=== PATIENT | female | born 1945 | race Caucasian/White ===

== ENCOUNTER 2016-11-15 12:10 | Inpatient (IN) ==
[2016-11-15] MEDS ORDERED: ACETAMINOPHEN 325 MG TABLET PO PRN (13:24)
[2016-11-15] MEDS ORDERED: ALBUTEROL 2.5 MG/3 ML NEB RESP TX PRN (13:24)
[2016-11-15] MEDS ORDERED: ONDANSETRON 4 MG/2 ML VIAL IV PRN (13:24)
[2016-11-15] MEDS ORDERED: DEXTROSE 50% 25 GM/50 ML VIAL IV PRN ×2 (13:24)
[2016-11-15] MEDS ORDERED: GLUCAGON 1 MG VIAL IM PRN ×2 (13:24)
--- NOTE | 2016-11-15 13:33 | Nephrology History & Physical ---
History of Present Illness Chief complaint: Shortness of breath CHF History of present illness: Ms. Cassidy is a 71 year old female with a history of chronic kidney disease due to hypertension is followed by me in my chronic kidney disease clinic. The patient's baseline serum creatinine is approximately 2.3. She follow-up in clinic again today with a one-week history of increased shortness of breath a 6 pound weight gain. Patient was been very poor follow-up neck walking in the clinic required wheelchair assistance. Her family expressed that she went to a local hospital for similar symptoms was observed for an additional 24 hours in the hospital however symptoms did not improve. While in clinic she had a chest x-ray a which showed evidence of pulmonary congestion. She and her family have stated they have tried Lasix at home and have not gotten much results. She has noticed further lower extremity swelling, and weakness. She is admitted for IV Lasix further workup for her congestive heart failure. Home Medications Medication Instructions Recorded Confirmed Type Carvedilol [Coreg] 25 mg PO BID 02/13/16 02/15/16 History Clopidogrel [Plavix] 75 mg PO DAILY 02/13/16 02/15/16 History Dicyclomine HCl 20 mg PO TID 02/13/16 02/15/16 History Ergocalciferol (Vitamin D2) 50,000 unit PO Q7D 02/13/16 02/15/16 History [Vitamin D2] Escitalopram [Lexapro] 10 mg PO QAM 02/13/16 02/15/16 History Ezetimibe [Zetia] 10 mg PO DAILY 02/13/16 02/15/16 History Furosemide Tab [Lasix Tab] 40 mg PO DAILY 02/13/16 02/15/16 History Isosorbide Mononitrate [Isosorbide 30 mg PO DAILY 02/13/16 02/15/16 History Mononitrate ER] Linaclotide [Linzess] 145 mcg PO AC BREAKFAST 02/13/16 02/15/16 History Nitroglycerin Sl Tab [Nitrostat] 0.4 mg SL Q5M PRN 02/13/16 02/15/16 History Olopatadine HCl [Pataday 0.2% Oph 1 drop BOTH EYES DAILY 02/13/16 02/15/16 History Soln] Pravastatin Sodium 40 mg PO BEDTIME 02/13/16 02/15/16 History Topiramate 50 mg PO BID 02/13/16 02/15/16 History amLODIPine [Norvasc] 10 mg PO DAILY 02/13/16 02/15/16 History hydrALAZINE TAB [Apresoline Tab] 50 mg PO TID 02/13/16 02/15/16 History Insulin NPH/Regular 70/30 [HumuLIN 12 unit SUBCUT BEDTIME injection 02/22/16 Rx 70/30] Insulin NPH/Regular 70/30 [HumuLIN 22 unit SUBCUT QAM injection 02/22/16 Rx 70/30] Warfarin [Coumadin] 2.5 mg PO DAILY@1800 #30 tablet 02/22/16 Rx Allergies Allergy/AdvReac Type Severity Reaction Status Date / Time Sulfa (Sulfonamide Allergy Unknown/Unable Verified 02/13/16 14:31 Antibiotics) to obtain Review of Systems Constitutional: fatigue, weakness Cardiovascular: dyspnea, dyspnea on exertion Respiratory: dyspnea, no cough Gastrointestinal: no abdominal pain, no bloating Genitourinary: no dysuria, no flank pain Musculoskeletal: muscle weakness, no arthralgias Neurological: no abnormal gait, no abnormal speech Medical,Surgical,& Family Hx - Medical History Cardio: History of: CHF, Hypertension, RI Neurology: History of: Seizures HEENT: History of: Eye Problem (chronic dry eyes) Endocrine: History of: Dyslipidemia Renal: History of: Renal Failure Other: History of: Miscellaneous Medical Problems (Lupus) - Surgical History Abdominal Surgeries: Surgical HX of: Cholecystectomy Reproductive Surgeries: Surgical HX of;: Hysterectomy Orthopedic Surgeries: Surgical HX of;: Orthopedic Surgery (right leg) - Family History Family History: Reports;: Family Cancer, Family Diabetes, Family Heart Disease, Family Hypertension - Social History Smoking Status: Never smoker Exam - Nephrology - General Appearance General appearance: well-developed, well-nourished, fatigue EENT: ATNC Neck: supple Respiratory: rales Cardiology: edema (2+ lower extremity), regular rate, regular rhythm Gastrointestinal: normoactive bowel sounds, no tenderness Integumentary: no rash Neurologic: alert and oriented x3, CN 3-12 intact Musculoskeletal: no clubbing Psychiatric: mood/affect appropriate Assessment and Plan (1) Congestive heart failure Status: Acute Assessment and plan: Appears to be acute on chronic exacerbation of CHF. Will get echocardiogram. BNP. Scheduled Lasix. Repeat chest x-ray in a.m. Current Visit: Yes (2) History of stroke Status: Chronic Current Visit: No (3) Essential hypertension Status: Chronic Current Visit: No (4) Diabetes mellitus Status: Chronic Current Visit: No Qualifiers: Diabetes mellitus type: type 2 (5) CKD (chronic kidney disease), stage IV Status: Chronic Assessment and plan: CKD stage III. BMP today. We will do scheduled Lasix. Daily BMP. Daily weight. Current Visit: No (6) Debility Status: Acute Current Visit: No
[2016-11-15 14:32] LABS: Basophils % 0.2 % (0.0-0.8); Eosinophils # 0.2 10*3/uL (0.0-0.87); Eosinophils % 3.9 % (0.00-10.9); Hematocrit 23.5 VOL% (35.7-47.0); Hemoglobin 7.4 GM/DL (12.0-16.0); Immature Granulocytes % 0.8 %; Immature Granulocytes Absolute 0.04 #; Lymphocytes # 1.6 10*3/uL (1.4-4.0); Mean Corpuscular HGB Conc 31.5 GM/DL (32-36); Mean Corpuscular Hemoglobin 30 PG (27-34); Mean Corpuscular Volume 95.9 FL (87-102); Mean Platelet Volume 9.1 FL (9.6-12.0); Monocytes # 0.3 10*3/uL (0.11-0.8); Monocytes % 6.6 % (1.7-12.7); Neutrophils # 2.7 10*3/uL (1.4-7.4); Neutrophils % 55.5 % (38.7-73.9); Platelet Count 119 T/CUMM (130-400); Red Blood Count 2.45 MC/CUMM (3.8-5.5); Red Cell Distribution Width 14.1 % (9.3-17.3); White Blood Count 4.8 T/CUMM (4-12)
[2016-11-15] MEDS: FUROSEMIDE 40 MG/4 ML VIAL IV SCH ×2 (15:25→21:07)
[2016-11-15 15:48] LABS: Albumin 2.9 G/DL (3.4-5.0); Bilirubin,Total 0.4 MG/DL (0.2-1.0); Calcium 7.7 MG/DL (8.5-10.1); Free T4 (Free Thyroxine) 1.14 NG/DL (0.76-1.46); Osmolality,Calculated 297.4 MOS/KG (273-304); Potassium 4.8 MMOL/L (3.5-5.1); Thyroid Stimulating Hormone 2.87 uIU/ml (0.358-3.74)
[2016-11-15] MEDS: INSULIN REGULAR 100 UNIT/ML SUBCUT SCH (17:14)
[2016-11-15] MEDS ORDERED: traMADol 50 MG TABLET PO PRN (19:04)
[2016-11-15] MEDS ORDERED: CYCLOBENZAPRINE 10 MG TABLET PO PRN (19:04)
[2016-11-15] MEDS ORDERED: ENOXAPARIN 30 MG/0.3 ML SYRINGE SUBCUT SCH (20:00)
[2016-11-15] MEDS: GABAPENTIN 100 MG CAPSULE PO SCH (20:12)
[2016-11-15] MEDS: DOCUSATE SODIUM 100 MG CAPSULE PO SCH (20:12)
[2016-11-15] MEDS: DICYCLOMINE 20 MG TABLET PO SCH (20:12)
[2016-11-15] MEDS: CARVEDILOL 25 MG TABLET PO SCH (20:12)
[2016-11-15 22:02] LABS: Apearance,Urine CLEAR (Clear); Bacteria,Urine Occasional /HPF (Few); Bilirubin,Urine Negative (Negative); Blood, Urine Small mg/dL (Negative); Glucose,Urine (UA) Negative (Negative); Hyaline Casts,Urine 1 /LPF (0-3); Ketones,Urine Negative (Negative); Mucus,Urine Occasional /LPF (Occasional); Nitrite,Urine Negative (Negative); Protein,Urine Negative; RBC,Urine 1 /HPF (0-4); Squamous Epithelial Cell,Urine Occasional /HPF (0-10); Urine Color Straw (Yellow); Urine Specific Gravity 1.004 (1.001-1.035); Urine Urobilinogen < 2.0 EU/DL (0.2-1.0); WBC,Urine <1 /HPF (0-6)
[2016-11-16] MEDS: FUROSEMIDE 40 MG/4 ML VIAL IV SCH ×4 (02:50→21:51)
[2016-11-16 05:43] LABS: Basophils % 0.4 % (0.0-0.8); Eosinophils # 0.2 10*3/uL (0.0-0.87); Eosinophils % 3.5 % (0.00-10.9); Hematocrit 22.2 VOL% (35.7-47.0); Immature Granulocytes % 0.6 %; Immature Granulocytes Absolute 0.03 #; Lymphocytes # 1.9 10*3/uL (1.4-4.0); Lymphocytes % 39.1 % (21.3-54.2); Mean Corpuscular HGB Conc 31.5 GM/DL (32-36); Mean Corpuscular Hemoglobin 30 PG (27-34); Mean Corpuscular Volume 93.7 FL (87-102); Mean Platelet Volume 9.2 FL (9.6-12.0); Monocytes # 0.4 10*3/uL (0.11-0.8); Neutrophils # 2.4 10*3/uL (1.4-7.4); Neutrophils % 48.4 % (38.7-73.9); Platelet Count 114 T/CUMM (130-400); Red Blood Count 2.37 MC/CUMM (3.8-5.5); Red Cell Distribution Width 14.4 % (9.3-17.3); White Blood Count 4.9 T/CUMM (4-12)
--- NOTE | 2016-11-16 05:49 | ECHO Report ---
Zaina Cassidy Exam Date: 11/15/2016 13:46 Referring Physician: Technologist: clarita Munguia ARDMS, RVT Age: 71 Ht (in): 69 Wt (lb): 265 Gender: F Exam Location: [facility] Echo Indications: Dyspnea, unspecified, Weakness, Other fatigue, Shortness of breath, CHF BP: 135 / 63 HR: 63 Rhythm: Sinus Technical Quality: Fair IMPRESSIONS Normal left ventricular cavity size. Mild left ventricular hypertrophy. Left ventricular ejection fraction is estimated at 65 %. Mildly increased right ventricular size. Moderately increased right atrial size. Moderately increased left atrial size. Mildly thickened mitral valve. Moderate mitral annular calcification. Mild-moderate mitral valve regurgitation. Aortic valve sclerosis without stenosis or regurgitation. Morphologically normal tricuspid valve. [id number] tricuspid valve regurgitation. Tricuspid regurgitation velocities suggest a PAP of 47 mmHg. Morphologically normal pulmonic valve. Mild pulmonary valve regurgitation. Normal pericardium without effusion. Normal ascending aorta dimension. MEASUREMENTS (Male / Female) Normal Values 2D ECHO LV Diastolic Diameter PLAX 4.7 cm 4.2 - 5.9 / 3.9 - 5.3 cm LV Systolic Diameter PLAX 1.7 cm LV Fractional Shortening PLAX 63.5 % IVS Diastolic Thickness 1.2 cm 0.6 - 1.0 / 0.6 - 0.9 cm LVPW Diastolic Thickness 1.2 cm 0.6 - 1.0 / 0.6 - 0.9 cm RV Internal Dim ED PLAX 4.9 cm Aortic Root Diameter 3.5 cm LA Systolic Diameter LX 4.7 cm 3.0 - 4.0 / 2.7 - 3.8 cm DOPPLER TR Peak Velocity 303.0 cm/s TR Peak Gradient 36.7 mmHg FINDINGS Left Ventricle Normal left ventricular cavity size. Mild left ventricular hypertrophy. Left ventricular ejection fraction is estimated at 65 %. Right Ventricle Mildly increased right ventricular size. Right Atrium Moderately increased right atrial size. Left Atrium Moderately increased left atrial size. Mitral Valve Mildly thickened mitral valve. Moderate mitral annular calcification. Mild-moderate mitral valve regurgitation. Aortic Valve Aortic valve sclerosis without stenosis or regurgitation. Tricuspid Valve Morphologically normal tricuspid valve. [id number]-[id number] tricuspid valve regurgitation. Tricuspid regurgitation velocities suggest a PAP of 47 mmHg. Pulmonic Valve Morphologically normal pulmonic valve. Mild pulmonary valve regurgitation. Pericardium Normal pericardium without effusion. Aorta Normal ascending aorta dimension. Peter Adair MD (Electronically Signed) Final Date: 16 November 2016 05:48
[2016-11-16 06:07] LABS: INR 1.9
[2016-11-16 06:12] LABS: Partial Thromboplastin Time 61.4 SECS (0-40)
[2016-11-16 06:20] LABS: Albumin 2.9 G/DL (3.4-5.0); Phosphorous 5.1 MG/DL (2.5-4.9); Potassium 4.5 MMOL/L (3.5-5.1)
[2016-11-16] MEDS: LINACLOTIDE 145 MCG CAPSULE PO SCH ×2 (08:57→09:23)
[2016-11-16] MEDS: INSULIN REGULAR 100 UNIT/ML SUBCUT SCH ×2 (08:57→17:03)
[2016-11-16] MEDS: amLODIPine 10 MG TABLET PO SCH (08:59)
[2016-11-16] MEDS: ESCITALOPRAM 10 MG TABLET PO SCH (08:59)
[2016-11-16] MEDS: DOCUSATE SODIUM 100 MG CAPSULE PO SCH ×2 (08:59→20:08)
[2016-11-16] MEDS: EZETIMIBE 10 MG TABLET PO SCH (08:59)
[2016-11-16] MEDS: PANTOPRAZOLE 40 MG TABLET PO SCH (08:59)
[2016-11-16] MEDS: CARVEDILOL 25 MG TABLET PO SCH ×2 (09:00→20:08)
[2016-11-16] MEDS: DICYCLOMINE 20 MG TABLET PO SCH ×3 (09:00→20:08)
[2016-11-16] MEDS: POTASSIUM CHLORIDE 20 MEQ TABLET PO SCH (09:00)
[2016-11-16] MEDS: GABAPENTIN 100 MG CAPSULE PO SCH ×3 (09:00→20:07)
--- NOTE | 2016-11-16 09:09 | XRay Report ---
XR chest 2V Indication: Shortness of breath. Chest 2 views: Comparison 02/13/2016. Moderate cardiomegaly, normal mediastinal contour are stable. In general, there is increased interstitial coarsening of the lungs since previous exam, especially on the right. Atelectasis or scarring the right perihilar lung is present. Tiny right pleural effusion is now present as well. Central pulmonary vascular congestion noted. Impression: Underlying chronic CHF. Worsening coarsening of interstitium of the lungs bilaterally but particularly on the right may be related to edema. Tiny right pleural effusion. PROCEDURE INTERPRETED AT [facility] DEPARTMENT OF RADIOLOGY Final Report Signed by: Karl Hernandes M.D.
--- NOTE | 2016-11-16 09:34 | Hospitalist Progress Note ---
Assessment and Plan (1) Pulmonary vascular congestion Status: Acute Assessment and plan: Impression: 1. Pulmonary vascular congestion 2. End-stage renal disease Plan: We will attempt to determine dialysis schedule and notify nephrology of the patient's admission. She does not recall her last dialysis. This note was completed using [email or web address] voice recognition software. There may be evp strategy errors as a result. Current Visit: Yes Hospitalist: Subjective Interval history: Follow-up pulmonary vascular congestion and end-stage renal disease. The patient denies any dyspnea. She does not know what days she dialyzes. She presented with worsening dyspnea, and her chest x-ray showed a somewhat asymmetric picture of pulmonary vascular congestion, with the right side being worse. Exam - Constitutional Vitals: Period Temp Pulse Resp BP Sys/Burton Pulse Ox Last 24 Hr 97 F-97.9 F 62-69 18-20 118-145/52-64 90-97 Vital signs are noted above. Heart is regular with distant tones and a soft systolic murmur. She has a few scattered rales, but the lungs do not show any wheezes. She is awake and conversant. Results - Labs CBC & BMP: 11/16/16 05:21 11/16/16 05:21 Lab Results: I have reviewed the past 24 hour labs - Diagnostic Findings Procedure: Chest x-ray: image reviewed by me (Chest x-ray is as described above)
[2016-11-16] MEDS ORDERED: SODIUM CHLORIDE 0.9% 250 ML IV PRN (12:51)
[2016-11-16] MEDS: CLOPIDOGREL 75 MG TABLET PO SCH (13:54)
[2016-11-16] MEDS: OLOPATADINE 0.1% OPH SOLN 5 ML BOTTLE BOTH EYES SCH (13:54)
--- NOTE | 2016-11-16 14:06 | Nephrology Progress Note ---
Nephrology - PN: Subj Interval history: Patient is resting comfortably. Family members at the bedside. Serum hemoglobin is noted to be 7 will give 2 units packed red blood cells today. She is continue with scheduled IV Lasix. Discussed with patient and her family regarding Coumadin therapy and she expressed that she has been told she needs to be on the Coumadin for long-term. There is no history of DVT or PE in this patient. She does have a history of stroke and is on Plavix for that. Exam (PN)-Nephrology - Vital Signs Vital signs: Period Temp Pulse Resp BP Sys/Burton Pulse Ox Last 24 Hr 97 F-98.1 F 62-69 16-20 118-164/52-73 90-97 - General Appearance General appearance: well-developed, well-nourished EENT: ATNC Neck: supple Respiratory: clear Cardiology: no edema Gastrointestinal: normoactive bowel sounds, no tenderness Integumentary: no rash Neurologic: no focal deficit, alert and oriented x3 Musculoskeletal: no clubbing Psychiatric: mood/affect appropriate - Lab 11/16/16 05:21 11/16/16 05:21 Most recent lab results Calcium 8.0 MG/DL (8.5-10.1) L 11/16/16 05:21 Phosphorus 5.1 MG/DL (2.5-4.9) H 11/16/16 05:21 Assessment and Plan (1) Congestive heart failure Status: Acute Assessment and plan: Appears to be acute on chronic exacerbation of CHF. BNP. Scheduled Lasix. Current Visit: Yes (2) History of stroke Status: Chronic Current Visit: No (3) Essential hypertension Status: Chronic Current Visit: No (4) Diabetes mellitus Status: Chronic Current Visit: No Qualifiers: Diabetes mellitus type: type 2 (5) CKD (chronic kidney disease), stage IV Status: Chronic Assessment and plan: CKD stage III. We will do scheduled Lasix. Daily BMP. Daily weight. Current Visit: No (6) Debility Status: Acute Current Visit: No (7) Anemia Status: Acute Current Visit: Yes (8) Lupus anticoagulant disorder Status: Acute Current Visit: No
[2016-11-16] MEDS ORDERED: WARFARIN 2.5 MG TABLET PO SCH (18:00)
[2016-11-16 23:10] LABS: Hematocrit 25.9 VOL% (35.7-47.0); Hemoglobin 8.5 GM/DL (12.0-16.0)
[2016-11-17] MEDS ORDERED: FUROSEMIDE 100 MG/10 ML VIAL ONE ×2 (02:01→08:24)
[2016-11-17] MEDS: FUROSEMIDE 40 MG/4 ML VIAL IV SCH ×2 (02:51→09:01)
[2016-11-17 05:50] LABS: Basophils % 0.4 % (0.0-0.8); Eosinophils # 0.2 10*3/uL (0.0-0.87); Eosinophils % 3.5 % (0.00-10.9); Hematocrit 28.6 VOL% (35.7-47.0); Hemoglobin 9.2 GM/DL (12.0-16.0); Immature Granulocytes % 0.4 %; Immature Granulocytes Absolute 0.02 #; Lymphocytes # 2.1 10*3/uL (1.4-4.0); Lymphocytes % 43.6 % (21.3-54.2); Mean Corpuscular HGB Conc 32.2 GM/DL (32-36); Mean Corpuscular Hemoglobin 30 PG (27-34); Mean Corpuscular Volume 92.3 FL (87-102); Mean Platelet Volume 9.5 FL (9.6-12.0); Monocytes # 0.4 10*3/uL (0.11-0.8); Monocytes % 7.9 % (1.7-12.7); Neutrophils # 2.2 10*3/uL (1.4-7.4); Neutrophils % 44.2 % (38.7-73.9); Platelet Count 132 T/CUMM (130-400); Red Cell Distribution Width 14.6 % (9.3-17.3); White Blood Count 4.9 T/CUMM (4-12)
[2016-11-17 06:33] LABS: Albumin 3.1 G/DL (3.4-5.0); Calcium 8.5 MG/DL (8.5-10.1); Phosphorous 5.1 MG/DL (2.5-4.9); Potassium 4.1 MMOL/L (3.5-5.1)
[2016-11-17] MEDS: LINACLOTIDE 145 MCG CAPSULE PO SCH (07:55)
[2016-11-17] MEDS: INSULIN REGULAR 100 UNIT/ML SUBCUT SCH ×2 (07:55→17:04)
[2016-11-17] MEDS: CARVEDILOL 25 MG TABLET PO SCH ×2 (08:54→21:48)
[2016-11-17] MEDS: DOCUSATE SODIUM 100 MG CAPSULE PO SCH ×2 (08:55→21:48)
[2016-11-17] MEDS: CLOPIDOGREL 75 MG TABLET PO SCH (08:55)
[2016-11-17] MEDS: POTASSIUM CHLORIDE 20 MEQ TABLET PO SCH (08:55)
[2016-11-17] MEDS: DICYCLOMINE 20 MG TABLET PO SCH ×3 (08:58→21:48)
[2016-11-17] MEDS: EZETIMIBE 10 MG TABLET PO SCH (08:58)
[2016-11-17] MEDS: PANTOPRAZOLE 40 MG TABLET PO SCH (08:58)
[2016-11-17] MEDS: GABAPENTIN 100 MG CAPSULE PO SCH ×3 (08:58→21:48)
[2016-11-17] MEDS: ESCITALOPRAM 10 MG TABLET PO SCH (08:58)
[2016-11-17] MEDS: amLODIPine 10 MG TABLET PO SCH (08:58)
[2016-11-17] MEDS: OLOPATADINE 0.1% OPH SOLN 5 ML BOTTLE BOTH EYES SCH (09:00)
--- NOTE | 2016-11-17 10:11 | Nephrology Progress Note ---
Nephrology - PN: Subj Interval history: 11/17/2016 the patient is resting comfortably. She is tolerated 2 units packed red blood cells on yesterday. Hematocrit is now 28.6. creatinine is noted to be 4.24 today. Patient did have an echocardiogram showing EF approximately 65% . Today we will plan on transitioning to p.o. Lasix. Exam (PN)-Nephrology - Vital Signs Vital signs: Period Temp Pulse Resp BP Sys/Burton Pulse Ox Last 24 Hr 96.8 F-98.3 F 63-72 16-20 131-185/46-78 90-98 - General Appearance General appearance: well-developed, well-nourished EENT: ATNC Neck: supple Respiratory: clear Cardiology: no edema, regular rate, regular rhythm Gastrointestinal: normoactive bowel sounds, no tenderness Neurologic: alert and oriented x3 - Lab 11/17/16 05:35 11/17/16 05:35 Most recent lab results Calcium 8.5 MG/DL (8.5-10.1) 11/17/16 05:35 Phosphorus 5.1 MG/DL (2.5-4.9) H 11/17/16 05:35 Assessment and Plan (1) Congestive heart failure Status: Resolved Assessment and plan: This appears to be stable. Scheduled Lasix by mouth 80 mg twice daily. Current Visit: Yes (2) History of stroke Status: Chronic Current Visit: No (3) Essential hypertension Status: Chronic Current Visit: No (4) Diabetes mellitus Status: Chronic Current Visit: No Qualifiers: Diabetes mellitus type: type 2 (5) CKD (chronic kidney disease), stage IV Status: Chronic Assessment and plan: CKD stage III. We will do scheduled Lasix by mouth. Daily BMP. Daily weight. Current Visit: No (6) Debility Status: Acute Current Visit: No (7) Anemia Status: Acute Current Visit: Yes (8) Lupus anticoagulant disorder Status: Acute Current Visit: No
[2016-11-17] MEDS ORDERED: NITROGLYCERIN SL 0.4 MG TABLET SL PRN (10:14)
[2016-11-17] MEDS ORDERED: INSULIN NPH/REGULAR 70/30 100 UNIT/ML SUBCUT SCH (17:00)
[2016-11-17] MEDS: FUROSEMIDE 80 MG TABLET PO SCH (17:07)
[2016-11-17] MEDS: TOPIRAMATE 25 MG TABLET PO SCH (21:49)
[2016-11-18 06:45] LABS: Calcium 8.1 MG/DL (8.5-10.1); Osmolality,Calculated 302.1 MOS/KG (273-304); Potassium 4.2 MMOL/L (3.5-5.1)
[2016-11-18] MEDS ORDERED: INSULIN NPH/REGULAR 70/30 100 UNIT/ML SUBCUT SCH (08:00)
[2016-11-18 08:03] LABS: Basophils % 0.4 % (0.0-0.8); Eosinophils # 0.2 10*3/uL (0.0-0.87); Eosinophils % 3.8 % (0.00-10.9); Hematocrit 28.2 VOL% (35.7-47.0); Hemoglobin 9.3 GM/DL (12.0-16.0); Immature Granulocytes % 0.4 %; Immature Granulocytes Absolute 0.02 #; Lymphocytes # 2.1 10*3/uL (1.4-4.0); Lymphocytes % 41.4 % (21.3-54.2); Mean Corpuscular Hemoglobin 30 PG (27-34); Mean Corpuscular Volume 92.2 FL (87-102); Mean Platelet Volume 9.4 FL (9.6-12.0); Monocytes # 0.5 10*3/uL (0.11-0.8); Neutrophils # 2.2 10*3/uL (1.4-7.4); Platelet Count 145 T/CUMM (130-400); Red Blood Count 3.06 MC/CUMM (3.8-5.5); Red Cell Distribution Width 14.4 % (9.3-17.3)
[2016-11-18] MEDS: FUROSEMIDE 80 MG TABLET PO SCH ×2 (08:56→17:07)
[2016-11-18] MEDS: CARVEDILOL 25 MG TABLET PO SCH ×2 (08:56→22:42)
[2016-11-18] MEDS: DOCUSATE SODIUM 100 MG CAPSULE PO SCH ×2 (08:56→22:41)
[2016-11-18] MEDS: GABAPENTIN 100 MG CAPSULE PO SCH ×3 (08:56→22:42)
[2016-11-18] MEDS: TOPIRAMATE 25 MG TABLET PO SCH ×2 (08:56→22:42)
[2016-11-18] MEDS: POTASSIUM CHLORIDE 20 MEQ TABLET PO SCH (08:56)
[2016-11-18] MEDS: EZETIMIBE 10 MG TABLET PO SCH (08:56)
[2016-11-18] MEDS: DICYCLOMINE 20 MG TABLET PO SCH ×3 (08:56→22:41)
[2016-11-18] MEDS: CLOPIDOGREL 75 MG TABLET PO SCH (08:56)
[2016-11-18] MEDS: ISOSORBIDE MONONITRATE 30 MG TABLET PO SCH (08:56)
[2016-11-18] MEDS: amLODIPine 10 MG TABLET PO SCH (08:57)
[2016-11-18] MEDS: OLOPATADINE 0.1% OPH SOLN 5 ML BOTTLE BOTH EYES SCH (08:57)
[2016-11-18] MEDS: ESCITALOPRAM 10 MG TABLET PO SCH (08:57)
[2016-11-18] MEDS: PANTOPRAZOLE 40 MG TABLET PO SCH (08:57)
[2016-11-18] MEDS: LINACLOTIDE 145 MCG CAPSULE PO SCH (09:01)
[2016-11-18] MEDS: INSULIN REGULAR 100 UNIT/ML SUBCUT SCH ×2 (09:02→17:08)
--- NOTE | 2016-11-18 15:29 | Nephrology Progress Note ---
Nephrology - PN: Subj Interval history: Patient is resting comfortably states she is feeling a little better. Serum creatinine is noted to be 4.2 which is trending down. Had a long discussion with patient's son who lives in [place] regarding treatment therapy and clarifications of medications. The patient had been on Plavix at a time but switch to Coumadin for further therapy. The patient's weight is down several kilograms. Again she is feeling stronger and requested to go home on tomorrow. Exam (PN)-Nephrology - Vital Signs Vital signs: Period Temp Pulse Resp BP Sys/Burton Pulse Ox Last 24 Hr 96.9 F-98.2 F 57-78 18-20 119-170/52-81 92-98 - General Appearance General appearance: well-developed, well-nourished EENT: ATNC Neck: supple Respiratory: clear Cardiology: regular rate, regular rhythm Gastrointestinal: normoactive bowel sounds, no tenderness, no guarding Musculoskeletal: no clubbing Psychiatric: mood/affect appropriate - Lab 11/18/16 07:14 11/18/16 05:22 Most recent lab results Calcium 8.1 MG/DL (8.5-10.1) L 11/18/16 05:22 Phosphorus 5.1 MG/DL (2.5-4.9) H 11/17/16 05:35 Assessment and Plan (1) Congestive heart failure Status: Resolved Assessment and plan: This appears to be stable. Scheduled Lasix by mouth 80 mg twice daily. Current Visit: Yes (2) History of stroke Status: Chronic Current Visit: No (3) Essential hypertension Status: Chronic Current Visit: No (4) Diabetes mellitus Status: Chronic Current Visit: No Qualifiers: Diabetes mellitus type: type 2 (5) CKD (chronic kidney disease), stage IV Status: Chronic Assessment and plan: CKD stage III. We will do scheduled Lasix by mouth. Daily BMP. Daily weight. Current Visit: No (6) Debility Status: Acute Current Visit: No (7) Anemia Status: Acute Current Visit: Yes (8) Lupus anticoagulant disorder Status: Acute Assessment and plan: Continue with Coumadin 3 mg daily. Last INR is noted be 1.9. Current Visit: No
[2016-11-18] MEDS ORDERED: WARFARIN 3 MG TABLET PO SCH (18:00)
[2016-11-19 06:52] LABS: Calcium 8.1 MG/DL (8.5-10.1); Osmolality,Calculated 297.4 MOS/KG (273-304); Potassium 3.9 MMOL/L (3.5-5.1)
[2016-11-19] MEDS: ISOSORBIDE MONONITRATE 30 MG TABLET PO SCH (09:59)
[2016-11-19] MEDS: POTASSIUM CHLORIDE 20 MEQ TABLET PO SCH (09:59)
[2016-11-19] MEDS: DICYCLOMINE 20 MG TABLET PO SCH ×2 (09:59→16:45)
[2016-11-19] MEDS: CARVEDILOL 25 MG TABLET PO SCH (09:59)
[2016-11-19] MEDS: DOCUSATE SODIUM 100 MG CAPSULE PO SCH (09:59)
[2016-11-19] MEDS: PANTOPRAZOLE 40 MG TABLET PO SCH (09:59)
[2016-11-19] MEDS: LINACLOTIDE 145 MCG CAPSULE PO SCH (09:59)
[2016-11-19] MEDS: EZETIMIBE 10 MG TABLET PO SCH (10:00)
[2016-11-19] MEDS: GABAPENTIN 100 MG CAPSULE PO SCH ×2 (10:00→16:45)
[2016-11-19] MEDS: INSULIN REGULAR 100 UNIT/ML SUBCUT SCH ×2 (10:00→19:44)
[2016-11-19] MEDS: FUROSEMIDE 80 MG TABLET PO SCH ×2 (10:00→16:45)
[2016-11-19] MEDS: ESCITALOPRAM 10 MG TABLET PO SCH (10:00)
[2016-11-19] MEDS: TOPIRAMATE 25 MG TABLET PO SCH (10:00)
[2016-11-19] MEDS: amLODIPine 10 MG TABLET PO SCH (10:00)
[2016-11-19] MEDS: OLOPATADINE 0.1% OPH SOLN 5 ML BOTTLE BOTH EYES SCH (10:02)
--- NOTE | 2016-11-19 13:53 | Discharge Summary ---
Hospital Course - Hospital Course Hospital Course: This hospitalization included patient admitted for CHF exacerbation shortness of breath or lower extremity swelling. Patient had echocardiogram showing EF approximately 60%. Serum creatinine remained stable around 4.3. Patient responded to IV Lasix and had approximately 15 pounds of fluid weight removed. She was switched to Lasix by mouth. The patient did require 2 units packed red blood cells as she was found to be anemia on presentation. She had been on several anti-coagulant medications due to her history of stroke. Further clarification regarding patient's anticoagulation therapy was done during this hospitalization. Specifically she is maintained on Coumadin therapy 3 mg daily INR remained stable at 1.9. Talk with family regarding chronic kidney disease and they voiced understanding that patient has underlying chronic kidney disease and we are striving to maintain her creatinine around the 4 level. Blood pressure is stable no fevers or chills. She is reached maximal hospitalization is prepared for discharge. She will follow me in approximately 1 week with CBC and BMP. - Time spent with patient Time with patient DS: Greater than 30 minutes Diagnosis - Discharge Diagnosis (1) Congestive heart failure Status: Resolved (2) History of stroke Status: Chronic (3) Essential hypertension Status: Chronic (4) Diabetes mellitus Status: Chronic (5) CKD (chronic kidney disease), stage IV Status: Chronic (6) Debility Status: Chronic (7) Anemia Status: Chronic (8) Lupus anticoagulant disorder Status: Acute Discharge Plan - Discharge Data Disposition: Disch To Home/Self Care Condition at Discharge: Stable Discharge Diet: advance to your usual diet Activity: resume usual activities as tolerated Contact your physician if you experience:: Difficulty voiding - Discharge Medications New Furosemide Tab [Lasix Tab] 80 mg PO BID DIURETIC #60 tablet Continue Nitroglycerin Sl Tab [Nitrostat] 0.4 mg SL Q5M PRN PRN Reason: Chest Pain hydrALAZINE TAB [Apresoline Tab] 50 mg PO TID amLODIPine [Norvasc] 10 mg PO DAILY Topiramate 50 mg PO BID Pravastatin Sodium 40 mg PO BEDTIME Olopatadine HCl [Pataday 0.2% Oph Soln] 1 drop BOTH EYES DAILY Linaclotide [Linzess] 145 mcg PO AC BREAKFAST PRN PRN Reason: Constipation Isosorbide Mononitrate [Isosorbide Mononitrate ER] 30 mg PO DAILY Ezetimibe [Zetia] 10 mg PO DAILY Escitalopram [Lexapro] 10 mg PO QAM Ergocalciferol (Vitamin D2) [Vitamin D2] 50,000 unit PO Q7D Carvedilol [Coreg] 25 mg PO BID Potassium Chloride 20 meq PO DAILY Cyclobenzaprine [Flexeril] 5 mg PO BID PRN PRN Reason: Spasms Ergocalciferol (Vitamin D2) [Vitamin D2] 50,000 unit PO Q7DAY Warfarin Sodium 3 mg PO SUTUTHFRSA@1800 Insulin NPH/Regular 70/30 [HumuLIN 70/30] 20 unit SUBCUT QAM Omeprazole 20 mg PO DAILY Gabapentin Cap/Tab [Neurontin Cap/Tab] 200 mg PO TID Tramadol HCl [Tramadol Tab] 50 mg PO BID PRN PRN Reason: Pain Warfarin Sodium 6 mg PO MOWE Insulin NPH/Regular 70/30 [HumuLIN 70/30] 10 unit SUBCUT BEDTIME Discontinued Furosemide Tab [Lasix Tab] 40 mg PO DAILY Meloxicam 15 mg PO DAILY PRN PRN Reason: Pain - Follow Up or Referral - Forms/Instructions Additional Discharge Instructions: Patient to follow with Dr. Voss 1 week with a BMP. Specifically regarding Lasix 80 mg in the morning and 40 mg in the evening. Exam - Constitutional Vitals: Period Temp Pulse Resp BP Sys/Burton Pulse Ox Last 24 Hr 97.0 F-98.3 F 56-64 20-22 129-161/56-69 94-100 General appearance: over weight - Head Head exam: Present: normal inspection - Respiratory Respiratory exam: Present: clear to auscultation bilaterally - Cardiovascular Cardiovascular exam: Present: regular rate and rhythm - GI/Abdominal GI/Abdominal exam: Present: normal bowel sounds - Extremities Exam Extremities exam: Present: full ROM - Back Exam Back exam: Present: normal inspection - Psychiatric Psychiatric exam: Present: normal affect - Skin Skin exam: Present: normal color Discharge Results Procedures and tests throughout hospitalization: Pending Orders 11/16/16 14:38 Lupus Anticoag Prof Routine Labs on day of discharge: Labs from last 24 hours 11/19/16 11/19/16 11/19/16 11:31 07:38 05:35 Sodium 140 Potassium 3.9 Chloride 106 Carbon Dioxide 27 Anion Gap 10.9 BUN 63 H Creatinine 4.30 H GFR Calculation 13 BUN/Creatinine Ratio 14.00 Glucose 121 H POC Glucose 228 H 128 H Calculated Osmolality 297.4 Calcium 8.1 L 11/18/16 16:32 Sodium Potassium Chloride Carbon Dioxide Anion Gap BUN Creatinine GFR Calculation BUN/Creatinine Ratio Glucose POC Glucose 271 H Calculated Osmolality Calcium DS: Provider Date of admission: 11/15/16 13:24 Primary care physician: Pat Randhawa Attending physician on admission: Jose Voss Jr., MD Consults: 11/15/16 13:50 Consult to Pastoral Services [CONS] Routine Comment: Pastoral Screen: Request Elevator Repair Mechanic Visit Pastoral Screen Source of Request: Patient 11/16/16 09:36 Consult to Physician [CONS] Routine Comment: patient of yours Consulting Provider: Jose Voss Jr. Discharging clinician: Jose Voss Jr., MD
[2016-11-19 14:11] LABS: DRVVT Confirmation 2.2 ratio (0.0 - 1.1); PT Mix 1:1 (Mayo Reflex) 15.4 sec; Platelet Neutralization Proced 58; Thrombin Time (Bovine), P 23 sec (15 - 23)
[2016-11-19 16:04] VITALS: BP 134/55
[2016-11-21 13:34] LABS: DRVVT Screen Ratio 4.3 ratio (0.0 - 1.1); INR 2.2
--- NOTE | 2016-11-25 15:34 | Physician Query Form ---
CLICK EDIT DOCUMENT TO SELECT QUERY ANSWER --> OK --> SIGN Madison Becerril RN Clinical Art Handler W) [phone] (f) [phone] [email or web address]: Make your selection(s) from the choices in EACH section by typing an "x" and enter comments in the comment section. Please use your independent medical judgment in providing your response. This request does not imply that any particular answer is desired or expected. CLINICAL INDICATORS: (Providers should not edit this section) Based on documentation of "Acute CHF" "She is admitted for IV Lasix further workup for her congestive heart failure." Echo showed EF of 65%. BNP of 126. Treated with IV Lasix. Please provide further specificity regarding CHF. ACUITY: ( ) Acute ( ) Chronic (x ) Acute on Chronic ( ) Clinicallly unable to determine TYPE: ( ) Systolic (HFrEF - heart failure with reduced systolic function/EF) ( x) Diastolic (HFpEF - heart failure with preserved systolic function/EF) ( ) Combined Systolic/Diastolic ( ) Other, please specify: ( ) Clinically unable to determine ( ) The patient does NOT have CHF COMMENTS: PLEASE ALSO DOCUMENT RESPONSE IN PROGRESS NOTES AND/OR DISCHARGE SUMMARY Use of terms such as suspected, likely, or probable (associated with a specific diagnosis that is being evaluated, monitored, or treated as if it exists) are acceptable and can be restated in the discharge summary if not ruled out. MTDD
== END 2016-11-19 17:42 | disposition home health service (06) | DRG 291 ==
LOC: SUATTDRO 12:14 → N.ADMINP 12:14 → N.2E 13:10
PROVIDERS: ADMIT Internal Medicine Nephrology; ATTEND Internal Medicine Nephrology

== ENCOUNTER 2017-02-03 16:38 | Inpatient (IN) ==
[2017-02-03] MEDS ORDERED: DEXTROSE 50% 25 GM/50 ML SYRINGE IV ONE ×2 (18:40→19:44)
[2017-02-03] MEDS ORDERED: DEXTROSE 50% 25 GM/50 ML VIAL IV STA (18:58)
[2017-02-03] MEDS ORDERED: DEXTROSE 50% 25 GM/50 ML SYRINGE IV STA (19:18)
[2017-02-03] MEDS ORDERED: SODIUM CHLORIDE 0.9% 500 ML IV STA (19:18)
[2017-02-03 19:30] LABS: Basophils % 0.2 % (0.0-0.8); Hematocrit 31.6 VOL% (35.7-47.0); Hemoglobin 10.5 GM/DL (12.0-16.0); Immature Granulocytes Absolute 0.57 #; Lymphocytes # 1.8 10*3/uL (1.4-4.0); Lymphocytes % 18.9 % (21.3-54.2); Mean Corpuscular HGB Conc 33.2 GM/DL (32-36); Mean Corpuscular Hemoglobin 31 PG (27-34); Mean Corpuscular Volume 92.7 FL (87-102); Mean Platelet Volume 9.6 FL (9.6-12.0); Monocytes # 0.4 10*3/uL (0.11-0.8); Monocytes % 4.7 % (1.7-12.7); NRBC # 0.02 10*3/uL; Neutrophils # 6.6 10*3/uL (1.4-7.4); Neutrophils % 70.2 % (38.7-73.9); Platelet Count 120 T/CUMM (130-400); Red Blood Count 3.41 MC/CUMM (3.8-5.5); Red Cell Distribution Width 15.3 % (9.3-17.3); White Blood Count 9.5 T/CUMM (4-12)
--- NOTE | 2017-02-03 19:42 | XRay Report ---
Portable chest Exam date: 02/03/2017 7:19 PM Indication: Shortness of breath, cough altered mental status Comparison: November 16, 2016 Findings: Cardiomediastinal contours are stable. Low lung volumes with parenchymal density with volume loss within the left lung base. No acute osseous abnormalities. Visualized upper abdomen demonstrates no acute pathology. Impression: Parenchymal density obscuring the left lung base, atelectasis, effusion and/or infectious process. Correlate with upright PA and lateral projection in full inspiration PROCEDURE INTERPRETED AT [facility] DEPARTMENT OF RADIOLOGY Final Report Signed by: Fabian Sommers MD
[2017-02-03 19:47] LABS: Albumin 3.1 G/DL (3.4-5.0); Bilirubin,Total 0.5 MG/DL (0.2-1.0); Calcium 7.6 MG/DL (8.5-10.1); Osmolality,Calculated 324.8 MOS/KG (273-304)
[2017-02-03 19:57] LABS: Troponin I Only 0.047 NG/ML (0.00-0.045)
--- NOTE | 2017-02-03 20:27 | Emergency Department Note ---
Remy Cook Jessica J, am scribing for, and in the presence of, Kalia Bernabe MD 19:50. Srinivasa Cook Charles R, MD, personally performed the services described in this documentation, ascribed by Renetta Alberto in my presence, and it is both accurate and complete . Arrival - Arrival Chief Complaint: Non-Specific Stated Complaint: hign bun poor kidney function ED Nursing Triage Note: Pt sent from Dr Randhawa's office for High BUN CREAT. Pt had increased Lasix dose last week. Mode of Arrival: Wheelchair Limitations: Altered Mental Status (due low blood glucose) Source: Patient, Family, RN Notes Reviewed Time Seen by Provider: 02/03/17 18:17 - History of Present Illness HPI Narrative: Pt is a 71 y/o female, with a history of IDDM, kidney failure, anemia, OR, and CVA, for further evaluation of ALOC. She was brought to the ED from for original complaint of elevated BUN creatinine from Dr. Randhawa's office. Family states she was "fine in the waiting room" became lethargic. Patients blood glucose was 30 at time of exam and D50 was pushed and was tolerated well. Family member states that her blood glucose was 568 at 1100 today and that 15 units of fast acting insulin was administered to her at that time. Family member explains the patient has a pain shooting up through her neck and she is currently taking neurontin and has doubled her lasiks dose, also she is not on dialysis for the kidney failure. No other complaints voiced in ED. Onset (ago): hour(s) Consistency: constant Severity: moderate, severe Severity scale (1-10): 8 Allergies/Adverse Reactions: Allergies Allergy/AdvReac Type Severity Reaction Status Date / Time Sulfa (Sulfonamide Allergy Unknown/Unable Verified 02/13/16 14:31 Antibiotics) to obtain Home Medications: Home Medications Medication Instructions Recorded Confirmed Type Carvedilol [Coreg] 25 mg PO BID 02/13/16 02/03/17 History Escitalopram [Lexapro] 10 mg PO QAM 02/13/16 02/03/17 History Ezetimibe [Zetia] 10 mg PO DAILY 02/13/16 02/03/17 History Isosorbide Mononitrate [Isosorbide 30 mg PO DAILY 02/13/16 02/03/17 History Mononitrate ER] Linaclotide [Linzess] 145 mcg PO AC BREAKFAST PRN 02/13/16 02/03/17 History Nitroglycerin Sl Tab [Nitrostat] 0.4 mg SL Q5M PRN 02/13/16 02/03/17 History Olopatadine HCl [Pataday 0.2% Oph 1 drop BOTH EYES DAILY 02/13/16 02/03/17 History Soln] Pravastatin Sodium 40 mg PO BEDTIME 02/13/16 02/03/17 History Topiramate 50 mg PO BID 02/13/16 02/03/17 History amLODIPine [Norvasc] 10 mg PO DAILY 02/13/16 02/03/17 History hydrALAZINE TAB [Apresoline Tab] 50 mg PO TID 02/13/16 02/03/17 History Cyclobenzaprine [Flexeril] 5 mg PO BID PRN 11/15/16 02/03/17 History Ergocalciferol (Vitamin D2) 50,000 unit PO Q7DAY 11/15/16 02/03/17 History [Vitamin D2] Gabapentin Cap/Tab [Neurontin 100 mg PO BID@0800,1200 11/15/16 02/03/17 History Cap/Tab] Omeprazole 20 mg PO DAILY 11/15/16 02/03/17 History Potassium Chloride 20 meq PO DAILY 11/15/16 02/03/17 History Tramadol HCl [Tramadol Tab] 50 mg PO BID PRN 11/15/16 02/03/17 History Insulin NPH/Regular 70/30 [HumuLIN 20 unit SUBCUT BEDTIME 11/16/16 02/03/17 History 70/30] Insulin NPH/Regular 70/30 [HumuLIN 45 unit SUBCUT QAM 11/16/16 02/03/17 History 70/30] Warfarin Sodium 3 mg PO SUTUTHFRSA@1800 11/16/16 02/03/17 History Warfarin Sodium 6 mg PO MOWE 11/16/16 02/03/17 History Furosemide Tab [Lasix Tab] 80 mg PO BID DIURETIC #60 tablet 11/19/16 02/03/17 Rx Gabapentin 200 mg PO BEDTIME 02/03/17 02/03/17 History Insulin Regular, Human [NovoLIN R] See Protocol SUBCUT TID PRN 02/03/17 History predniSONE TAB [PredniSONE] 80 mg PO DAILY 02/03/17 02/03/17 History Review of System - Review of System ROS unobtainable: due to mental status (low blood glucose of 30) Medical,Surgical,& Family Hx - Medical History Cardio: History of: CHF, Hypertension, OR Neurology: History of: Cerebrovascular Accident, Seizures HEENT: History of: Eye Problem (chronic dry eyes) Endocrine: History of: Dyslipidemia Respiratory: History of: Pneumonia Renal: History of: Renal Failure Gastrointestinal: History of: GERD, GI Problems (chronic diarrhea) Other: History of: Miscellaneous Medical Problems (Lupus) - Surgical History Abdominal Surgeries: Surgical HX of: Cholecystectomy Reproductive Surgeries: Surgical HX of;: Hysterectomy Orthopedic Surgeries: Surgical HX of;: Orthopedic Surgery (right leg) - Family History Family History: Reports;: Family Cancer, Family Diabetes, Family Heart Disease, Family Hypertension - Social History Smoking Status: Never smoker Exam Vital Signs: Vital Signs Temperature 96.7 F L 02/03/17 16:38 Pulse Rate 65 02/03/17 16:38 Respiratory Rate 18 02/03/17 16:38 Blood Pressure 119/60 02/03/17 16:38 O2 Sat by Pulse Oximetry 100 02/03/17 16:38 - General Exam limited due to: ALOC (because of low blood glucose ) - Head Head exam: Present: atraumatic, normocephalic - ENT ENT exam: Present: mucous membranes moist. Absent: mucous membranes dry - Neck Neck exam: Present: trachea midline - Chest Chest inspection: Present: symmetric chest wall rise - Respiratory Respiratory exam: Present: rales. Absent: respiratory distress - Cardiovascular Cardiovascular exam: Present: regular rate, normal rhythm, normal heart sounds - Extremities Exam Extremities exam: Present: pedal edema (+1 BLE) - Neurological Exam Neurological exam: Present: motor sensory deficit. Absent: alert, oriented X3 - Skin Skin exam: Present: warm, dry Course - Consultations Consultation #1: Hospitalist will admit patient Time: 20:34 Results - Labs CBC & BMP: 02/03/17 18:35 02/03/17 18:35 Lab Results: I have reviewed the patients labs Labs: Laboratory Tests 02/03/17 02/03/17 02/03/17 18:35 18:35 18:39 WBC 9.5 RBC 3.41 L Hgb 10.5 L Hct 31.6 L Plt Count 120 L Lymph % (Auto) 18.9 L Sodium 144 Potassium 5.0 Chloride 114 H Carbon Dioxide 20 L BUN 134 H Creatinine 4.10 H BUN/Creatinine Ratio 32.00 H Glucose 28 L* POC Glucose 30 L* Calculated Osmolality 324.8 H Calcium 7.6 L AST 42 H ALT 57 H Troponin I 0.047 H Albumin 3.1 L Globulin 3.9 H Albumin/Globulin Ratio 0.7 L 02/03/17 19:41 WBC RBC Hgb Hct Plt Count Lymph % (Auto) Sodium Potassium Chloride Carbon Dioxide BUN Creatinine BUN/Creatinine Ratio Glucose POC Glucose 71 L Calculated Osmolality Calcium AST ALT Troponin I Albumin Globulin Albumin/Globulin Ratio Laboratory Tests 02/03/17 18:35 Prolactin 33.8 - Diagnostic Findings Procedure: Chest x-ray: report reviewed by me (Parenchymal density obscurring the left lung base, atelectasis effusion and/or infectious process. Correlate with upright PA and lateral projection in full inspiration. ) Critical Care Time Critical Care Time: Yes Total Critical Care Time: 30 (minutes) Disposition Clinical Impression: Altered mental status, Hypoglycemia, CKD (chronic kidney disease), stage IV, Debility, Essential hypertension Case discussed with: patient, patient's family Disposition: Still a Patient Condition: Guarded Time of Disposition: 20:35
[2017-02-03 20:44] LABS: Lymphocytes 21 % (20-55); Segmented Neutrophils 79 % (50-85); Total Cells Counted 100
[2017-02-03 20:45] LABS: Platelet Estimate Decreased
--- NOTE | 2017-02-03 20:46 | CT Report ---
Exam: CT head without intravenous contrast Clinical History: 71 years Female confusion, altered mental status Technique: Axial computed tomography images of the head/brain without intravenous contrast. The CT exam was performed using one or more of the following dose reduction techniques: Automated exposure control, adjustment of the mA and/or kV according to patient size, or use of iterative reconstruction technique. Comparison: February 13, 2016 Findings: Brain: Scattered chronic infarction is again noted, unchanged. Scattered microangiopathic small vessel ischemic disease within the supratentorial white matter and darcy. Sommers-white matter distinction maintained. No mass effect. No intra or extra-axial hemorrhage. Ventricles: Unremarkable. No ventriculomegaly. Bones/joints: Calvarium is intact Soft tissues: Unremarkable Sinuses: No active paranasal sinus process Mastoid air cells: Unremarkable as visualized. Impression: 1. No acute intracranial abnormality PROCEDURE INTERPRETED AT [facility] DEPARTMENT OF RADIOLOGY Final Report Signed by: Fabian Sommers MD
[2017-02-03 21:11] LABS: Apearance,Urine Slightly Hazy (Clear); Bacteria,Urine Occasional /HPF (Few); Bilirubin,Urine Negative (Negative); Blood, Urine Small mg/dL (Negative); Glucose,Urine (UA) Negative (Negative); Ketones,Urine Negative (Negative); Nitrite,Urine Negative (Negative); Protein,Urine Negative; RBC,Urine 1 /HPF (0-4); Squamous Epithelial Cell,Urine Occasional /HPF (0-10); Transitional Epi Cells,Urine Occasional /HPF (<1); Urine Color Yellow (Yellow); Urine Specific Gravity 1.009 (1.001-1.035); Urine Urobilinogen < 2.0 EU/DL (0.2-1.0); WBC,Urine 1 /HPF (0-6)
[2017-02-03] MEDS ORDERED: ONDANSETRON 4 MG/2 ML VIAL IV PRN (21:37)
[2017-02-03] MEDS ORDERED: GLUCAGON 1 MG VIAL IM PRN (21:37)
[2017-02-03] MEDS ORDERED: DEXTROSE 50% 25 GM/50 ML SYRINGE IV PRN (21:37)
[2017-02-03] MEDS ORDERED: ALBUTEROL 2.5 MG/3 ML NEB RESP TX PRN (21:37)
--- NOTE | 2017-02-03 22:00 | Hospitalist History & Physical ---
Assessment and Plan (1) CKD (chronic kidney disease), stage IV Status: Chronic Current Visit: Yes (2) Anemia Status: Chronic Current Visit: No (3) Altered mental status Status: Acute Current Visit: Yes (4) Hypoglycemia Status: Acute Assessment and plan: Plan for this patient will be admitting her to the unit. Will monitor Accu- Cheks every 2 hours. Have her on 5% dextrose IV. Need to watch for volume overload. Patient's not enough to wake to have any oral intake at this point. We will restart home medications. Patient is working have to take them. I do feel what happened was that patient took her insulin and did not eat. She was at our hospital during that time. Will consult nephrology to evaluate her kidney function since this was the original reason patient was sent up to the hospital. Reevaluate patient in the morning and adjust plans as appropriate Current Visit: Yes History of Present Illness Chief complaint: Altered mental status History of present illness: Ms. Cassidy is a 71 year old female with past medical history significant for insulin-dependent diabetes, chronic kidney disease, anemia HI and stroke who was brought to our hospital from Dr. Randhawa's office. Apparently the initial complaint was elevated BUN. Dr. Randhawa wanted this evaluated at the hospital since this was a change from her previous values. According to the family members patient was fine in the waiting room she became lethargic. Patient's glucose was checked and was found to be 30. Amp of D50 was given to her she tolerated well and which she mental status improved greatly. Then soon thereafter she got lethargic again and required another amp of D50 at that time they put on dextrose infusion in the emergency room. Family claims that her sugars usually run out of control and it was 568 1100 and she was given 15 units of fast acting insulin. Family members also report that she had a pain shooting to her neck and she is currently taking Neurontin. She recently had her Lasix dose doubled. There is no family in the room when I examined her and all history was obtained from the ER chart. Home Medications Medication Instructions Recorded Confirmed Type Carvedilol [Coreg] 25 mg PO BID 02/13/16 02/03/17 History Escitalopram [Lexapro] 10 mg PO QAM 02/13/16 02/03/17 History Ezetimibe [Zetia] 10 mg PO DAILY 02/13/16 02/03/17 History Isosorbide Mononitrate [Isosorbide 30 mg PO DAILY 02/13/16 02/03/17 History Mononitrate ER] Linaclotide [Linzess] 145 mcg PO AC BREAKFAST PRN 02/13/16 02/03/17 History Nitroglycerin Sl Tab [Nitrostat] 0.4 mg SL Q5M PRN 02/13/16 02/03/17 History Olopatadine HCl [Pataday 0.2% Oph 1 drop BOTH EYES DAILY 02/13/16 02/03/17 History Soln] Pravastatin Sodium 40 mg PO BEDTIME 02/13/16 02/03/17 History Topiramate 50 mg PO BID 02/13/16 02/03/17 History amLODIPine [Norvasc] 10 mg PO DAILY 02/13/16 02/03/17 History hydrALAZINE TAB [Apresoline Tab] 50 mg PO TID 02/13/16 02/03/17 History Cyclobenzaprine [Flexeril] 5 mg PO BID PRN 11/15/16 02/03/17 History Ergocalciferol (Vitamin D2) 50,000 unit PO Q7DAY 11/15/16 02/03/17 History [Vitamin D2] Gabapentin Cap/Tab [Neurontin 100 mg PO BID@0800,1200 11/15/16 02/03/17 History Cap/Tab] Omeprazole 20 mg PO DAILY 11/15/16 02/03/17 History Potassium Chloride 20 meq PO DAILY 11/15/16 02/03/17 History Tramadol HCl [Tramadol Tab] 50 mg PO BID PRN 11/15/16 02/03/17 History Insulin NPH/Regular 70/30 [HumuLIN 20 unit SUBCUT BEDTIME 11/16/16 02/03/17 History 70/30] Insulin NPH/Regular 70/30 [HumuLIN 45 unit SUBCUT QAM 11/16/16 02/03/17 History 70/30] Warfarin Sodium 3 mg PO SUTUTHFRSA@1800 11/16/16 02/03/17 History Warfarin Sodium 6 mg PO MOWE 11/16/16 02/03/17 History Furosemide Tab [Lasix Tab] 80 mg PO BID DIURETIC #60 tablet 11/19/16 02/03/17 Rx Gabapentin 200 mg PO BEDTIME 02/03/17 02/03/17 History Insulin Regular, Human [NovoLIN R] See Protocol SUBCUT TID PRN 02/03/17 History predniSONE TAB [PredniSONE] 80 mg PO DAILY 02/03/17 02/03/17 History Allergies Allergy/AdvReac Type Severity Reaction Status Date / Time Sulfa (Sulfonamide Allergy Unknown/Unable Verified 02/13/16 14:31 Antibiotics) to obtain Medical,Surgical,& Family Hx - Medical History Cardio: History of: CHF, Hypertension, [place] Neurology: History of: Cerebrovascular Accident, Seizures HEENT: History of: Eye Problem (chronic dry eyes) Endocrine: History of: Dyslipidemia Respiratory: History of: Pneumonia Renal: History of: Renal Failure Gastrointestinal: History of: GERD, GI Problems (chronic diarrhea) Other: History of: Miscellaneous Medical Problems (Lupus) - Surgical History Abdominal Surgeries: Surgical HX of: Cholecystectomy Reproductive Surgeries: Surgical HX of;: Hysterectomy Orthopedic Surgeries: Surgical HX of;: Orthopedic Surgery (right leg) - Family History Family History: Reports;: Family Cancer, Family Diabetes, Family Heart Disease, Family Hypertension - Social History Smoking Status: Never smoker Frequency of Alcohol Use: Unknown Type of Drug Use: Unknown ROS unobtainable: due to mental status Exam - Constitutional Vitals: Period Temp Pulse Resp BP Sys/Burton Pulse Ox Last 24 Hr 96.7 F 60-65 17-28 109-154/54-65 96-100 General appearance: over weight - Head Head exam: Present: normal inspection - Eye Pupils: Present: GRADY - ENT ENT exam: Present: normal exam - Neck Neck exam: Present: normal inspection - Respiratory Respiratory exam: Present: clear to auscultation bilaterally - Cardiovascular Cardiovascular exam: Present: regular rate and rhythm - GI/Abdominal GI/Abdominal exam: Present: normal bowel sounds, soft. Absent: tenderness, rebound - Extremities Exam Extremities exam: Present: normal inspection - Back Exam Back exam: Present: normal inspection - Neurological Exam Neurological exam: Present: other (Altered from hypoglycemia) - Psychiatric Psychiatric exam: Present: depressed - Skin Skin exam: Present: normal color Results - Labs CBC & BMP: 02/03/17 18:35 02/03/17 18:35
[2017-02-03 22:43] LABS: Barbiturates Screen,Urine Negative (Negative); Benzodiazepines Screen,Urine Negative (Negative); Cannabinoid Screen,Urine Negative (Negative); Opiate Screen,Urine Negative (Negative); Phencyclidine Screen,Urine Negative (Negative)
[2017-02-03] MEDS: DEXTROSE 5% NACL 0.45% 1,000 ML IV SCH (23:58)
[2017-02-04] MEDS: PANTOPRAZOLE 40 MG VIAL IV SCH ×2 (00:15→20:39)
[2017-02-04 01:06] LABS: INR 2.3
[2017-02-04 01:23] LABS: PT Patient Result 25.4 SECS
[2017-02-04 07:15] LABS: Albumin 2.7 G/DL (3.4-5.0); Bilirubin,Total 0.8 MG/DL (0.2-1.0); Calcium 6.9 MG/DL (8.5-10.1); Osmolality,Calculated 333.7 MOS/KG (273-304); Potassium 4.7 MMOL/L (3.5-5.1); Total Protein 5.7 G/DL (6.4-8.3)
--- NOTE | 2017-02-04 08:46 | Ultrasound Report ---
US renal Bilateral Indication: CKD. Comparison: None. Technique: Multiple longitudinal and transverse real-time sonographic images of the kidneys are obtained. Findings: The right kidney measures 12.7 cm, and the left kidney measures 10.4 cm. There is no evidence of hydronephrosis. Increased echogenicity of the kidneys noted bilaterally consistent with medical renal disease. There is a hypoechoic rim noted about both kidneys which most likely reflects nonspecific perinephric fluid. However, lymphoma can have a similar appearance. IMPRESSION: There is no evidence of hydronephrosis. Increased echogenicity of the kidneys noted bilaterally consistent with medical renal disease. There is a hypoechoic rim noted about both kidneys which most likely reflects nonspecific perinephric fluid. However, lymphoma can have a similar appearance but this is considered less likely. Consider CT of the abdomen with and without the use of intravenous contrast for further evaluation. PROCEDURE INTERPRETED AT [facility] DEPARTMENT OF RADIOLOGY Final Report Signed by: Dr Darrin Dias
--- NOTE | 2017-02-04 10:51 | Hospitalist Progress Note ---
Assessment and Plan (1) Hypoglycemia Status: Acute Assessment and plan: most likely due to worsening RF plus Insulin therapy.Renal status is slowly improving. Blood sugar stable on IV replacement. Plan HbA1c level Current Visit: Yes (2) CKD (chronic kidney disease), stage IV Status: Chronic Assessment and plan: Nephrology has been consulted. Current Visit: Yes (3) History of stroke Status: Chronic Assessment and plan: with Lupus anticogulant disorder on chronic anticoagulation. Monitor INR level Current Visit: No (4) Essential hypertension Status: Chronic Assessment and plan: stable Current Visit: Yes (5) Diabetes mellitus Status: Chronic Assessment and plan: now with hypoglycemic episodes. Plan Continue IV glucose infusion, accucheks, continue to hold Insulin, continue hydration Current Visit: No Qualifiers: Diabetes mellitus type: type 2 (6) Dyslipidemia Status: Acute Assessment and plan: resume home meds. Current Visit: Yes (7) Lupus Status: Acute Assessment and plan: Resume home steroids Current Visit: Yes (8) Congestive heart failure Status: Resolved Assessment and plan: stable Current Visit: No (9) GERD (gastroesophageal reflux disease) Status: Acute Assessment and plan: stable Current Visit: Yes (10) History of seizures Status: Acute Assessment and plan: continue with meds Current Visit: Yes Hospitalist: Subjective Interval history: Patient seen eating her breakfast. Her blood sugar has improved.No new complaints. She is okay to move to the medical floor. Exam - Constitutional Vitals: Period Temp Pulse Resp BP Sys/Burton Pulse Ox Last 24 Hr 96.7 F-97.8 F 60-69 13-28 109-160/40-73 96-100 General appearance: no acute distress - Head Head exam: Present: normal inspection - Neck Neck exam: Present: normal inspection - Respiratory Respiratory exam: Present: clear to auscultation bilaterally - Cardiovascular Cardiovascular exam: Present: regular rate and rhythm - GI/Abdominal GI/Abdominal exam: Present: normal bowel sounds - Extremities Exam Extremities exam: Present: normal inspection - Neurological Exam Neurological exam: Present: alert, oriented X3 Results - Labs CBC & BMP: 02/03/17 18:35 02/04/17 05:47 Lab Results: I have reviewed the past 24 hour labs
[2017-02-04 11:42] LABS: INR 2.5
[2017-02-04 11:43] LABS: PT Patient Result 27.6 SECS
[2017-02-04] MEDS: EZETIMIBE 10 MG TABLET PO SCH (12:55)
[2017-02-04 13:29] LABS: Creatinine,Urine Random 56 MG/DL; Total Protein,Urine Random 35 MG/DL; Urea Nitrogen, Urine Random 857 MG/DL
--- NOTE | 2017-02-04 13:42 | Nephrology Consult Note ---
History of Present Illness Chief complaint: Admitted for hypoglycemia, referred for CKD stage 4. History of present illness: Ms. Cassidy is a 71 year old female followed by Dr Voss in Nephrology, sent to ED for increased BUN to 130 range and found to have AMS due to hypoglycemia. Responded to IV glucose. Creatinine at discharge in November was 4.1. Per Dr Voss' s notes her goal creatinine is around 4. She was diuresed that hospitalization from 120kg to 113kg at discharge with increased lasix dosing to keep volume off. Her weight on admission is 116kg. She is O2 dependent at home (2L/min). Long hx of DM2/HTN/CO stroke. Home Medications Medication Instructions Recorded Confirmed Type Carvedilol [Coreg] 25 mg PO BID 02/13/16 02/03/17 History Escitalopram [Lexapro] 10 mg PO QAM 02/13/16 02/03/17 History Ezetimibe [Zetia] 10 mg PO DAILY 02/13/16 02/03/17 History Isosorbide Mononitrate [Isosorbide 30 mg PO DAILY 02/13/16 02/03/17 History Mononitrate ER] Linaclotide [Linzess] 145 mcg PO AC BREAKFAST PRN 02/13/16 02/03/17 History Nitroglycerin Sl Tab [Nitrostat] 0.4 mg SL Q5M PRN 02/13/16 02/03/17 History Olopatadine HCl [Pataday 0.2% Oph 1 drop BOTH EYES DAILY 02/13/16 02/03/17 History Soln] Pravastatin Sodium 40 mg PO BEDTIME 02/13/16 02/03/17 History Topiramate 50 mg PO BID 02/13/16 02/03/17 History amLODIPine [Norvasc] 10 mg PO DAILY 02/13/16 02/03/17 History hydrALAZINE TAB [Apresoline Tab] 50 mg PO TID 02/13/16 02/03/17 History Cyclobenzaprine [Flexeril] 5 mg PO BID PRN 11/15/16 02/03/17 History Ergocalciferol (Vitamin D2) 50,000 unit PO Q7DAY 11/15/16 02/03/17 History [Vitamin D2] Gabapentin Cap/Tab [Neurontin 100 mg PO BID@0800,1200 11/15/16 02/03/17 History Cap/Tab] Omeprazole 20 mg PO DAILY 11/15/16 02/03/17 History Potassium Chloride 20 meq PO DAILY 11/15/16 02/03/17 History Tramadol HCl [Tramadol Tab] 50 mg PO BID PRN 11/15/16 02/03/17 History Insulin NPH/Regular 70/30 [HumuLIN 20 unit SUBCUT BEDTIME 11/16/16 02/03/17 History 70/30] Insulin NPH/Regular 70/30 [HumuLIN 45 unit SUBCUT QAM 11/16/16 02/03/17 History 70/30] Warfarin Sodium 3 mg PO SUTUTHFRSA@1800 11/16/16 02/03/17 History Warfarin Sodium 6 mg PO MOWE 11/16/16 02/03/17 History Furosemide Tab [Lasix Tab] 80 mg PO BID DIURETIC #60 tablet 11/19/16 02/03/17 Rx Gabapentin 200 mg PO BEDTIME 02/03/17 02/03/17 History Insulin Regular, Human [NovoLIN R] See Protocol SUBCUT TID PRN 02/03/17 History predniSONE TAB [PredniSONE] 80 mg PO DAILY 02/03/17 02/03/17 History Allergies Allergy/AdvReac Type Severity Reaction Status Date / Time Sulfa (Sulfonamide Allergy Unknown/Unable Verified 02/13/16 14:31 Antibiotics) to obtain Medical,Surgical,& Family Hx - Medical History Cardio: History of: CHF, Hypertension, [place] Psychological: History of: Anxiety Disorders, Depression Neurology: History of: Cerebrovascular Accident, Seizures HEENT: History of: Eye Problem (chronic dry eyes) Endocrine: History of: Diabetes Mellitus (IDDM), Dyslipidemia Respiratory: History of: Pneumonia Renal: History of: Renal Failure Gastrointestinal: History of: GERD, GI Problems (chronic diarrhea) Musculoskeletal: History of: Back/Neck Problems, Herniated Disk Hematology: History of: Anemia Other: History of: Miscellaneous Medical Problems (Lupus) - Surgical History Cardiac Surgeries: Sugical HX of: Cardiac Catheterization HEENT Surgeries: Surgical HX of: Eye Surgery (cataracts) Abdominal Surgeries: Surgical HX of: Abdominal Surgery, Cholecystectomy Reproductive Surgeries: Surgical HX of;: Hysterectomy Orthopedic Surgeries: Surgical HX of;: Orthopedic Surgery (right leg) - Family History Family History: Reports;: Family Cancer, Family Diabetes, Family Heart Disease, Family Hypertension - Social History Smoking Status: Never smoker Frequency of Alcohol Use: None Type of Drug Use: None Exam - Vital Signs Vital signs: Period Temp Pulse Resp BP Sys/Burton Pulse Ox Last 24 Hr 96.7 F-97.8 F 60-70 13-28 109-160/33-73 96-100 - General Appearance General appearance: well-developed, obese EENT: ATNC, PERRL Neck: no thyromegaly Cardiology: no murmurs, no rub Gastrointestinal: normoactive bowel sounds, no tenderness Integumentary: no rash, warm and dry Neurologic: no focal deficit, no asterixis, alert and oriented x3 Musculoskeletal: no deformities, no erythema Psychiatric: mood/affect appropriate, cooperative Results - Labs CBC & BMP: 02/03/17 18:35 02/04/17 05:47 Assessment and Plan (1) CKD (chronic kidney disease), stage IV Problem details: Stable at baseline. No indication for renal replacement therapy at this time. eGFR 15cc/min by CKD-EPI formula. Status: Chronic Assessment and plan: Avoid volume overload. Allow to drink to thirst. Current Visit: Yes (2) Essential hypertension Status: Chronic Current Visit: Yes (3) Diabetes mellitus Status: Chronic Current Visit: No Qualifiers: Diabetes mellitus type: type 2
[2017-02-04] MEDS: INSULIN REGULAR 100 UNIT/ML SUBCUT SCH ×3 (17:51→23:42)
[2017-02-04] MEDS: DEXTROSE 5% NACL 0.45% 1,000 ML IV SCH (19:21)
[2017-02-04] MEDS: ACETAMINOPHEN 325 MG TABLET PO PRN (20:38)
[2017-02-04] MEDS: TOPIRAMATE 25 MG TABLET PO SCH (20:39)
[2017-02-04] MEDS: PRAVASTATIN 40 MG TABLET PO SCH (20:39)
[2017-02-04] MEDS: CARVEDILOL 25 MG TABLET PO SCH (20:40)
[2017-02-05] MEDS: INSULIN REGULAR 100 UNIT/ML SUBCUT SCH ×7 (06:08→23:37)
[2017-02-05 07:04] LABS: Osmolality,Calculated 325.4 MOS/KG (273-304); Potassium 4.3 MMOL/L (3.5-5.1)
[2017-02-05 07:47] LABS: Basophils % 0.2 % (0.0-0.8); Eosinophils % 0.7 % (0.00-10.9); Hematocrit 28.2 VOL% (35.7-47.0); Hemoglobin 9.2 GM/DL (12.0-16.0); Immature Granulocytes % 2.4 %; Immature Granulocytes Absolute 0.13 #; Lymphocytes # 2.1 10*3/uL (1.4-4.0); Mean Corpuscular HGB Conc 32.6 GM/DL (32-36); Mean Corpuscular Hemoglobin 31 PG (27-34); Mean Corpuscular Volume 94.9 FL (87-102); Mean Platelet Volume 9.6 FL (9.6-12.0); Monocytes # 0.4 10*3/uL (0.11-0.8); Monocytes % 6.7 % (1.7-12.7); Neutrophils # 2.8 10*3/uL (1.4-7.4); Red Blood Count 2.97 MC/CUMM (3.8-5.5); Red Cell Distribution Width 15.4 % (9.3-17.3)
[2017-02-05 07:52] LABS: White Blood Count 5.4 T/CUMM (4-12)
[2017-02-05 07:53] LABS: Platelet Count 81 T/CUMM (130-400)
[2017-02-05 07:59] LABS: Hypochromasia 2+; Microcytosis 2+
[2017-02-05 08:11] LABS: Macrocytosis 1+
--- NOTE | 2017-02-05 08:24 | Nephrology Progress Note ---
Nephrology - PN: Subj Interval history: Pt states she had a good night. States her breathing is at baseline. Net neg approx 2.5L since admission. Na 147 and rising, calculated free water deficit of 2.4L. Exam (PN)-Nephrology - Vital Signs Vital signs: Period Temp Pulse Resp BP Sys/Burton Pulse Ox Last 24 Hr 97.4 F-98.6 F 58-83 13-23 120-161/33-73 96-100 - General Appearance General appearance: well-developed, obese EENT: ATNC, PERRL, hearing intact, vision intact Neck: no JVD, no thyromegaly Respiratory: no kyphosis, clear Cardiology: no murmurs, no rub, edema Gastrointestinal: normoactive bowel sounds, no tenderness Integumentary: no rash, warm and dry Neurologic: no focal deficit, no asterixis, alert and oriented x3 Musculoskeletal: no deformities, no erythema Psychiatric: mood/affect appropriate, cooperative - Lab 02/05/17 07:21 02/05/17 05:05 Most recent lab results Calcium 7.0 MG/DL (8.5-10.1) L 02/05/17 05:05 Magnesium 2.0 MG/DL (1.8-2.4) 02/03/17 18:35 Assessment and Plan (1) Hypoglycemia Status: Resolved Current Visit: Yes (2) Hypernatremia Problem details: Calculated free water deficit of 2.4L. Replace with 1/4NS at 50cc/hr. Status: Acute Current Visit: Yes (3) CKD (chronic kidney disease), stage IV Problem details: Stable at baseline. No indication for renal replacement therapy at this time. eGFR 16cc/min by CKD-EPI formula. Status: Chronic Assessment and plan: Avoid volume overload. Allow to drink to thirst. Current Visit: Yes (4) Essential hypertension Status: Chronic Current Visit: Yes (5) Diabetes mellitus Status: Chronic Current Visit: No Qualifiers: Diabetes mellitus type: type 2
--- NOTE | 2017-02-05 09:52 | Hospitalist Progress Note ---
Assessment and Plan (1) Hypoglycemia Status: Resolved Assessment and plan: most likely due to worsening RF plus Insulin therapy.Renal status is slowly improving. IV dextrose has been dcd.Blood sugar is stable. HbA1c level-9.1 Current Visit: Yes (2) CKD (chronic kidney disease), stage IV Problem details: Stable at baseline. No indication for renal replacement therapy at this time. eGFR 16cc/min by CKD-EPI formula. Status: Chronic Assessment and plan: Nephrology is following Current Visit: Yes (3) History of stroke Status: Chronic Assessment and plan: with Lupus anticogulant disorder on chronic anticoagulation. Monitor INR level, pharmacy to dose Current Visit: No (4) Essential hypertension Status: Chronic Assessment and plan: stable Current Visit: Yes (5) Diabetes mellitus Status: Chronic Assessment and plan: now with hypoglycemic episodes. Plan Continue sliding scale, accucheks Current Visit: No Qualifiers: Diabetes mellitus type: type 2 (6) Dyslipidemia Status: Acute Assessment and plan: resume home meds. Current Visit: Yes (7) Lupus Status: Acute Assessment and plan: stable Current Visit: Yes (8) Congestive heart failure Status: Resolved Assessment and plan: stable Current Visit: No (9) GERD (gastroesophageal reflux disease) Status: Acute Assessment and plan: stable Current Visit: Yes (10) History of seizures Status: Acute Assessment and plan: continue with meds Current Visit: Yes Hospitalist: Subjective Interval history: Patient seen this am. Her blood sugar has improved and IV dextrose has been dcd. Nephrology is also correcting hypernatrenia. Exam - Constitutional Vitals: Period Temp Pulse Resp BP Sys/Burton Pulse Ox Last 24 Hr 97.4 F-98.6 F 58-83 13-23 120-161/33-73 96-100 General appearance: no acute distress, over weight - Head Head exam: Present: normal inspection - Respiratory Respiratory exam: Present: clear to auscultation bilaterally - Cardiovascular Cardiovascular exam: Present: regular rate and rhythm - GI/Abdominal GI/Abdominal exam: Present: normal bowel sounds - Extremities Exam Extremities exam: Present: normal inspection - Neurological Exam Neurological exam: Present: alert, oriented X3 Results - Labs CBC & BMP: 02/05/17 07:21 02/05/17 05:05 Lab Results: I have reviewed the past 24 hour labs
[2017-02-05] MEDS: CARVEDILOL 25 MG TABLET PO SCH ×2 (10:54→21:27)
[2017-02-05] MEDS: OLOPATADINE 0.1% OPH SOLN 5 ML BOTTLE BOTH EYES SCH (10:54)
[2017-02-05] MEDS: predniSONE 20 MG TABLET PO SCH (10:54)
[2017-02-05] MEDS: ISOSORBIDE MONONITRATE 30 MG TABLET PO SCH (10:54)
[2017-02-05] MEDS: TOPIRAMATE 25 MG TABLET PO SCH ×2 (10:54→21:27)
[2017-02-05] MEDS: EZETIMIBE 10 MG TABLET PO SCH (10:54)
[2017-02-05] MEDS: amLODIPine 10 MG TABLET PO SCH (10:54)
[2017-02-05 10:55] LABS: INR 2.2
[2017-02-05] MEDS: SODIUM CHLORIDE 23.4% CONC INJ 38.5 MEQ in STERILE WATER INJ 1,000 ML IV SCH (10:56)
[2017-02-05 10:59] LABS: PT Patient Result 23.7 SECS
--- NOTE | 2017-02-05 11:50 | Physician Query Form ---
CLICK EDIT DOCUMENT TO SELECT QUERY ANSWER --> OK --> SIGN Madison Becerril RN Clinical Forest Ranger Technician W) [phone] (f) [phone] [email or web address] PROVIDERS: Make your selection(s) from the choices in EACH section by typing an "x" and enter comments in the comment section. Please use your independent medical judgment in providing your response. This request does not imply that any particular answer is desired or expected. CLINICAL INDICATORS: (Providers should not edit this section) Based on documentation of "CKD stage 4" history of renal failure. Creatinine from 4.10 to 3.60. GFR form 14 to 16. Treated with NS bolus followed by d51/2 NS infusion. Monitored with serial lab checks. Clarify which of the following most accurately represents the patient's renal status: ( ) Acute kidney injury (non-traumatic) (x ) Acute renal failure ( ) Acute renal failure with underlying Chronic Kidney Disease (CKD) - please provide stage below ( ) Acute renal failure with pathological renal lesion ( ) Acute renal failure with necrosis ( ) tubular ( ) medullary ( ) cortical ( ) CKD - please provide stage below ( ) End Stage Renal Disease ( ) Acute interstitial nephritis ( ) Hepatorenal syndrome ( ) Other, please specify: ( ) Clinically unable to determine Chronic Kidney Disease Stages Source: National Kidney Disease Foundation ( ) Stage I (eGFR > or = 90) ( ) Stage II (eGFR 60 - 89) ( ) Stage III (eGFR 30 - 59) ( x) Stage IV (eGFR 15 - 29) ( ) Stage V (eGFR < 15 or dialysis) COMMENTS: PLEASE ALSO DOCUMENT RESPONSE IN PROGRESS NOTES AND/OR DISCHARGE SUMMARY Use of terms such as suspected, likely, or probable (associated with a specific diagnosis that is being evaluated, monitored, or treated as if it exists) are acceptable and can be restated in the discharge summary if not ruled out. MTDD
--- NOTE | 2017-02-05 11:53 | Physician Query Form ---
CLICK EDIT DOCUMENT TO SELECT QUERY ANSWER --> OK --> SIGN Madison Becerril RN Clinical Tapper Bit W) [phone] (f) [phone] [email or web address] PROVIDERS: Make your selection(s) from the choices in EACH section by typing an "x" and enter comments in the comment section. Please use your independent medical judgment in providing your response. This request does not imply that any particular answer is desired or expected. CLINICAL INDICATORS: (Providers should not edit this section) Based on documentation of " Family states she was "fine in the waiting room" became lethargic. Patients blood glucose was 30 at time of exam and D50 was pushed" "Hypoglycemia" "Acute altered mental status" Treated in hospital with D5 1/2NS infusion . ACUITY: (x ) Acute ( ) Acute on Chronic ( ) Chronic ( ) Clinically unable to determine NATURE: ( ) Delirium due to general medical condition ( ) Dementia (x ) Encephalopathy ( ) Unconscious ( ) Transient level of awareness ( ) Comatose ( ) Locked-in State ( ) Persistent Vegetative State ( ) Other, please specify: ( ) Clinically unable to determine Please indicate the underlying cause of the altered mental status (CHECK ALL THAT APPLY): ( ) Baseline dementia ( ) Alzheimer's disease ( ) Parkinson's disease ( ) Lewy body dementia ( ) Acute stroke ( ) Late effect of stroke ( ) Reactive (from emotional stress, psychological trauma) (x ) Due to narcotics/other drugs ( ) Post procedural delirium ( ) Transient ischemic attack ( ) Generalized cerebral edema ( ) Normal pressure hydrocephalus ( ) Psychiatric illness ( ) Other, please specify: ( ) Clinically unable to determine Please indicate if there is an infection, sepsis, dehydration or specific organ failure that is causing the dementia. Be specific with clarifying the relationship between that process and the mental status change. COMMENTS: PLEASE ALSO DOCUMENT RESPONSE IN PROGRESS NOTES AND/OR DISCHARGE SUMMARY Use of terms such as suspected, likely, or probable (associated with a specific diagnosis that is being evaluated, monitored, or treated as if it exists) are acceptable and can be restated in the discharge summary if not ruled out. MTDD
[2017-02-05] MEDS ORDERED: DEXTROSE 50% 25 GM/50 ML VIAL IV PRN (13:00)
[2017-02-05] MEDS: ACETAMINOPHEN 325 MG TABLET PO PRN (17:59)
[2017-02-05] MEDS ORDERED: WARFARIN 3 MG TABLET PO SCH (18:00)
[2017-02-05] MEDS: PANTOPRAZOLE 40 MG VIAL IV SCH (21:27)
[2017-02-05] MEDS: PRAVASTATIN 40 MG TABLET PO SCH (21:27)
[2017-02-05] MEDS ORDERED: INFLUENZA VIRUS VACCINE 0.5 ML SYRINGE IM ONE (23:55)
[2017-02-06] MEDS: INSULIN REGULAR 100 UNIT/ML SUBCUT SCH ×5 (03:14→21:07)
[2017-02-06] MEDS: SODIUM CHLORIDE 23.4% CONC INJ 38.5 MEQ in STERILE WATER INJ 1,000 ML IV SCH ×2 (03:23→09:33)
[2017-02-06 03:26] LABS: Eosinophils % 0.2 % (0.00-10.9); Hematocrit 26.2 VOL% (35.7-47.0); Hemoglobin 8.6 GM/DL (12.0-16.0); Immature Granulocytes % 2.5 %; Immature Granulocytes Absolute 0.12 #; Lymphocytes # 1.4 10*3/uL (1.4-4.0); Lymphocytes % 28.7 % (21.3-54.2); Mean Corpuscular HGB Conc 32.8 GM/DL (32-36); Mean Corpuscular Hemoglobin 30 PG (27-34); Mean Corpuscular Volume 91.6 FL (87-102); Mean Platelet Volume 9.7 FL (9.6-12.0); Monocytes # 0.4 10*3/uL (0.11-0.8); Monocytes % 7.3 % (1.7-12.7); Neutrophils # 2.9 10*3/uL (1.4-7.4); Neutrophils % 61.3 % (38.7-73.9); Platelet Count 81 T/CUMM (130-400); Red Blood Count 2.86 MC/CUMM (3.8-5.5); Red Cell Distribution Width 14.8 % (9.3-17.3); White Blood Count 4.8 T/CUMM (4-12)
[2017-02-06 03:32] LABS: INR 1.9; PT Patient Result 20.3 SECS
[2017-02-06 04:03] LABS: Band Neutrophils 4 % (0-10); Lymphocytes 23 % (20-55); Metamyelocytes 2 %; Segmented Neutrophils 69 % (50-85)
[2017-02-06 04:04] LABS: Platelet Estimate Decreased; Total Cells Counted 100
[2017-02-06 04:17] LABS: Calcium 7.1 MG/DL (8.5-10.1); Osmolality,Calculated 318.6 MOS/KG (273-304); Potassium 4.7 MMOL/L (3.5-5.1)
[2017-02-06] MEDS: EZETIMIBE 10 MG TABLET PO SCH (09:32)
[2017-02-06] MEDS: amLODIPine 10 MG TABLET PO SCH (09:32)
[2017-02-06] MEDS: ISOSORBIDE MONONITRATE 30 MG TABLET PO SCH (09:33)
[2017-02-06] MEDS: predniSONE 20 MG TABLET PO SCH (09:33)
[2017-02-06] MEDS: CARVEDILOL 25 MG TABLET PO SCH ×2 (09:33→21:07)
[2017-02-06] MEDS: TOPIRAMATE 25 MG TABLET PO SCH ×2 (09:33→21:07)
[2017-02-06] MEDS: OLOPATADINE 0.1% OPH SOLN 5 ML BOTTLE BOTH EYES SCH (09:33)
--- NOTE | 2017-02-06 10:18 | Hospitalist Progress Note ---
Assessment and Plan - Time spent with patient Time spent with patient: Less than 30 minutes (1) History of stroke Status: Chronic Assessment and plan: 71-year-old white female with multiple medical problems admitted by the hospitalist on 02-18 with altered mental status due to hypoglycemia and hypernatremia. Nephrology was consulted to assist in her IV fluids were adjusted. Her chronic kidney disease has remained stable and she will need to follow-up with Dr. Voss in clinic. Patient has temporal arteritis as well and is on 80 mg of prednisone daily that is being managed by the interactive web developer Dr. Toribio. There is some concern about sending her home on home insulin doses with this much prednisone on board. Diabetes educators have been in to educate on sliding scale insulin until her prednisone has been tapered. His sons are concerned about doing sliding scale per the insistence of her Quill Cleaner Doctor Rosa in [place]. Therefore patient will be evaluated by physical therapy for possible swing bed placement. May need to consult the interactive web developer to follow her at swing bed to taper steroids. She will need close monitoring of her blood sugars. Discussed with Dr. Isaac and further recommendations to follow. Current Visit: No (2) Essential hypertension Status: Chronic Current Visit: Yes (3) Diabetes mellitus Status: Chronic Current Visit: No Qualifiers: Diabetes mellitus type: type 2 (4) CKD (chronic kidney disease), stage IV Problem details: Stable at baseline. No indication for renal replacement therapy at this time. eGFR 16cc/min by CKD-EPI formula. Status: Chronic Current Visit: Yes (5) Congestive heart failure Status: Resolved Current Visit: No (6) Hypoglycemia Status: Resolved Current Visit: Yes (7) Dyslipidemia Status: Acute Current Visit: Yes (8) Lupus Status: Acute Current Visit: Yes (9) GERD (gastroesophageal reflux disease) Status: Acute Current Visit: Yes (10) History of seizures Status: Acute Current Visit: Yes Hospitalist: Subjective Interval history: Patient feels a little bit better today. She is eating well. She is speaking with diabetes educators right now. Exam - Constitutional Vitals: Period Temp Pulse Resp BP Sys/Burton Pulse Ox Last 24 Hr 98.2 F-99.3 F 70-93 14-20 133-156/42-75 95-99 Exam: 71-year-old white female, no acute distress, alert and oriented Chest clear CV regular rate and rhythm Abdomen obese, nontender Extremities mild pedal edema Results - Labs CBC & BMP: 02/06/17 03:02 02/06/17 03:02 Lab Results: I have reviewed the past 24 hour labs
--- NOTE | 2017-02-06 10:24 | Nephrology Progress Note ---
Nephrology - PN: Subj Interval history: Ms Cassidy looks much improved this am. SaO2 99% on RA (she uses oxygen at home , 2L/min). Creatinine improved to 3.2. Sodium improved with gentle free water replacement overnight. Exam (PN)-Nephrology - Vital Signs Vital signs: Period Temp Pulse Resp BP Sys/Burton Pulse Ox Last 24 Hr 98.2 F-99.3 F 70-93 14-20 133-156/42-75 95-99 - General Appearance General appearance: well-developed, obese EENT: ATNC, PERRL Neck: no JVD, no thyromegaly Respiratory: no kyphosis, clear Cardiology: no murmurs, no rub, no edema Gastrointestinal: normoactive bowel sounds, no tenderness Integumentary: no rash, warm and dry Neurologic: no focal deficit, no asterixis, alert and oriented x3 Musculoskeletal: no deformities, no erythema Psychiatric: mood/affect appropriate, cooperative - Lab 02/06/17 03:02 02/06/17 03:02 Most recent lab results Calcium 7.1 MG/DL (8.5-10.1) L 02/06/17 03:02 Magnesium 2.0 MG/DL (1.8-2.4) 02/03/17 18:35 Assessment and Plan (1) Hypernatremia Problem details: Calculated free water deficit of 2.4L. Replace with 1/4NS at 50cc/hr. Status: Acute Assessment and plan: Improved to near normal. Continue 1/4NS @ 50cc/hr. Stable for d/c from nephrology standpoint. F/U nephrology clinic Dr Voss in 1-2 weeks. Current Visit: Yes (2) Hypoglycemia Status: Resolved Current Visit: Yes (3) CKD (chronic kidney disease), stage IV Problem details: Stable at baseline. No indication for renal replacement therapy at this time. eGFR 16cc/min by CKD-EPI formula. Status: Chronic Assessment and plan: Avoid volume overload. Allow to drink to thirst. Continue IVFs @ less than maintenance rate overnight (50cc/hr). Current Visit: Yes (4) Essential hypertension Status: Chronic Current Visit: Yes (5) Diabetes mellitus Status: Chronic Current Visit: No
[2017-02-06] MEDS ORDERED: WARFARIN 3 MG TABLET PO SCH (18:00)
[2017-02-06] MEDS: PANTOPRAZOLE 40 MG VIAL IV SCH (21:07)
[2017-02-06] MEDS: PRAVASTATIN 40 MG TABLET PO SCH (21:08)
[2017-02-07] MEDS: SODIUM CHLORIDE 23.4% CONC INJ 38.5 MEQ in STERILE WATER INJ 1,000 ML IV SCH ×2 (00:06→09:03)
[2017-02-07] MEDS: INSULIN REGULAR 100 UNIT/ML SUBCUT SCH ×4 (00:06→12:53)
[2017-02-07 03:49] LABS: INR 1.9; PT Patient Result 20.4 SECS
[2017-02-07] MEDS: amLODIPine 10 MG TABLET PO SCH (09:03)
[2017-02-07] MEDS: predniSONE 20 MG TABLET PO SCH (09:03)
[2017-02-07] MEDS: CARVEDILOL 25 MG TABLET PO SCH (09:03)
[2017-02-07] MEDS: TOPIRAMATE 25 MG TABLET PO SCH (09:03)
[2017-02-07] MEDS: EZETIMIBE 10 MG TABLET PO SCH (09:03)
[2017-02-07] MEDS: ISOSORBIDE MONONITRATE 30 MG TABLET PO SCH (09:03)
--- NOTE | 2017-02-07 09:47 | Discharge Summary ---
Hospital Course - Hospital Course Hospital Course: 71-year-old white female with history of diabetes, chronic kidney disease, anemia, MD, and stroke admitted from Dr. Randhawa's office for evaluation of elevated BUN. While in the waiting room patient became lethargic and when evaluated her blood sugars were 30. She was admitted and started on dextrose infusion. Dr. Moore was consulted for Dr. Voss for evaluation of her elevated creatinine. He monitored her free water and gently diuresed her. Her sodium improved and her creatinine improved to discharge of 3.2. Patient's home medicine listed 80 mg of prednisone daily. This was found to be a treatment for what was thought to be temporal arteritis. She was seen by Dr. Martin at the ophthalmology clinic and she received a temporal biopsy in [place]. This was inconclusive. Dr. Randhawa had started her originally on 80 mg in January and she followed up with Dr. Ackerman the laminator shortly after that. Dr. ackerman had reduced her dosage to 30 mg that started on February 02. According to her son she received 2 doses at 30 mg but entering the hospital she is received 2 doses of 80 mg. She can safely be reduced back to her 30 mg dose [facility]. She will continue this dosage until she follows up with Dr. ackerman at the end of February. Patient is an insulin-dependent diabetic and feel it is unsafe for her to return home on her current insulin regimen due to her hyper and hypoglycemic episodes. Patient is doing well with sliding scale insulin at this time. We will continue her on sliding scale insulin until her prednisone can be tapered. Patient will need to follow-up with Dr. Voss in his office in 1-2 weeks, keep her appointment with Dr. ackerman the laminator at the end of this month, she will also need to see her breaker machine operator in [place] as well as Dr. Randhawa her primary care physician. Complete discharge instructions were given to the patient and her son in the room. Care coordination, chart review, and completed discharge paperwork took approximately 52 minutes. - Time spent with patient Time with patient DS: Greater than 30 minutes Diagnosis - Discharge Diagnosis (1) History of stroke Status: Chronic (2) Essential hypertension Status: Chronic (3) Diabetes mellitus Status: Chronic (4) CKD (chronic kidney disease), stage IV Status: Chronic (5) Congestive heart failure Status: Chronic (6) Hypoglycemia Status: Resolved (7) Dyslipidemia Status: Chronic (8) Lupus Status: Chronic (9) GERD (gastroesophageal reflux disease) Status: Chronic (10) History of seizures Status: Chronic Specialty Discharge - Follow Up or Referrals Follow up with: Jose Voss Jr., MD [Physician] - 02/17/17 10:30 am Discharge Plan - Discharge Data Disposition: Disch/Xfer-Ip Rehab Fac Condition at Discharge: Stable Discharge Diet: diabetic diet Activity: as per physical therapy - Discharge Medications New Dextrose 50% [D50] 25 gm IV PRN PRN vial PRN Reason: Hypoglycemia with IV access Glucagon 1 mg IM PRN PRN vial PRN Reason: Hypoglycemia w/o IV access Insulin Regular [HumuLIN R] See Protocol SUBCUT Q4H unit predniSONE TAB [PredniSONE] 30 mg PO DAILY #90 tablet Continue Nitroglycerin Sl Tab [Nitrostat] 0.4 mg SL Q5M PRN PRN Reason: Chest Pain hydrALAZINE TAB [Apresoline Tab] 50 mg PO TID amLODIPine [Norvasc] 10 mg PO DAILY Topiramate 50 mg PO BID Pravastatin Sodium 40 mg PO BEDTIME Olopatadine HCl [Pataday 0.2% Oph Soln] 1 drop BOTH EYES DAILY Linaclotide [Linzess] 145 mcg PO AC BREAKFAST PRN PRN Reason: Constipation Isosorbide Mononitrate [Isosorbide Mononitrate ER] 30 mg PO DAILY Ezetimibe [Zetia] 10 mg PO DAILY Escitalopram [Lexapro] 10 mg PO QAM Carvedilol [Coreg] 25 mg PO BID Potassium Chloride 20 meq PO DAILY Cyclobenzaprine [Flexeril] 5 mg PO BID PRN PRN Reason: Spasms Ergocalciferol (Vitamin D2) [Vitamin D2] 50,000 unit PO Q7DAY Warfarin Sodium 3 mg PO SUTUTHFRSA@1800 Furosemide Tab [Lasix Tab] 80 mg PO BID DIURETIC #60 tablet Gabapentin 200 mg PO BEDTIME Omeprazole 20 mg PO DAILY Gabapentin Cap/Tab [Neurontin Cap/Tab] 100 mg PO BID@0800,1200 Tramadol HCl [Tramadol Tab] 50 mg PO BID PRN PRN Reason: Pain Warfarin Sodium 6 mg PO MOWE Discontinued Insulin NPH/Regular 70/30 [HumuLIN 70/30] 45 unit SUBCUT QAM Insulin Regular, Human [NovoLIN R] See Protocol SUBCUT TID PRN PRN Reason: increased blood sugar Insulin NPH/Regular 70/30 [HumuLIN 70/30] 20 unit SUBCUT BEDTIME predniSONE TAB [PredniSONE] 80 mg PO DAILY - Follow Up or Referral Follow Up: Jose Voss Jr., MD [Physician] - 02/17/17 10:30 am Alex Ortiz MD [Physician] - (keep appt for this month ) - Forms/Instructions Exam - Constitutional Vitals: Period Temp Pulse Resp BP Sys/Burton Pulse Ox Last 24 Hr 97.5 F-98.7 F 68-78 16-20 130-144/49-64 97-97 Exam: 71-year-old white female, no acute distress, alert and oriented Chest clear CV regular rate and rhythm Abdomen soft nontender Extremities no edema Discharge Results Procedures and tests throughout hospitalization: Pending Orders 02/03/17 19:19 Blood Culture Stat Labs on day of discharge: Labs from last 24 hours 02/07/17 02/07/17 02/06/17 03:33 02:02 23:58 INR 1.9 PT Patient/Control Mix 20.4 POC Glucose 189 H 372 H 02/06/17 02/06/17 02/06/17 22:37 20:05 18:31 INR PT Patient/Control Mix POC Glucose 432 H 468 H 451 H 02/06/17 02/06/17 16:14 10:49 INR PT Patient/Control Mix POC Glucose 458 H 215 H Preliminary micro results at discharge 02/04/17 00:05 Blood Culture - Preliminary Blood No growth at 3 days 02/04/17 00:05 Blood Culture - Preliminary Blood No growth at 3 days DS: Provider Date of admission: 02/03/17 21:37 Primary care physician: Pat Randhawa Attending physician on admission: Karl Lieberman MD Consults: 02/03/17 21:37 Consult to Physician [CONS] Routine Comment: increaseing BUN Consulting Provider: Sven Moore Consulting Provider Notified: Yes Consult to Specialist Group: Nephrology When should Consulting Provider be notified: In am Person Notified: NAVEEN Date Notified: 02/04/17 Time Notified: 08:25 02/05/17 09:58 Consult to Pharmacy [CONS] Routine Reason for Pharmacy Consult: Adjust Meds Renal Funct Comment: Coumadin dosing 02/06/17 08:30 Consult to [facility], Educator [CONS] Routine Reason for Work Manager: Diabetes Education Consult Comment: teach SSI for home and let me know what rx for dc if needed 02/06/17 09:47 Consult to Case Mgmt/Social Srvs [CONS] Routine Reason for Case Mgmt/Social Srvs: Swingbed/SNF/Penitentiary Consult to Physical Therapy [CONS] Routine Reason for Physical Therapy: Evaluate and Treat Consult Comment: for swing bed Discharging clinician: LEÓN Townsend Expected date of discharge: 02/07/17
[2017-02-07] MEDS: OLOPATADINE 0.1% OPH SOLN 5 ML BOTTLE BOTH EYES SCH (10:14)
[2017-02-07 11:37] VITALS: BP 158/64
--- NOTE | 2017-02-07 14:46 | Nephrology Progress Note ---
Nephrology - PN: Subj Interval history: Pt appears comfortable on room air. Denies pain. No renal labs. [facility]. Son thinks she does not have signficant rehab potential. He c/o prednisone dose being wrong. Started on high dose prednisone for presumed temporal arteritis, had been reduced by ophthalmology. Exam (PN)-Nephrology - Vital Signs Vital signs: Period Temp Pulse Resp BP Sys/Burton Pulse Ox Last 24 Hr 97.3 F-98.7 F 68-87 16-20 130-158/49-65 95-99 - General Appearance General appearance: well-developed, obese (hernandez facies) EENT: ATNC, PERRL, mucous membranes moist, hearing intact, vision intact Neck: no JVD, no thyromegaly Respiratory: no kyphosis, clear Cardiology: no murmurs, no rub Gastrointestinal: normoactive bowel sounds, no tenderness Integumentary: no rash, warm and dry Neurologic: no focal deficit, no asterixis, alert and oriented x3 Musculoskeletal: no deformities, no erythema Psychiatric: mood/affect appropriate, cooperative - Lab 02/06/17 03:02 02/06/17 03:02 Most recent lab results Calcium 7.1 MG/DL (8.5-10.1) L 02/06/17 03:02 Magnesium 2.0 MG/DL (1.8-2.4) 02/03/17 18:35 Assessment and Plan (1) CKD (chronic kidney disease), stage IV Problem details: Stable at baseline. No indication for renal replacement therapy at this time. eGFR 19cc/min by CKD-EPI formula. Status: Chronic Assessment and plan: Avoid volume overload. Allow to drink to thirst. D/C IVFs. Current Visit: Yes (2) Essential hypertension Status: Chronic Current Visit: Yes (3) Diabetes mellitus Status: Chronic Current Visit: No Qualifiers: Diabetes mellitus type: type 2 Specialty Discharge - Follow Up or Referrals Follow up with: Alex Ortiz MD [Physician] - (keep appt for this month ) Jose Voss Jr., MD [Physician] - 02/17/17 10:30 am
[2017-02-08] MEDS ORDERED: predniSONE 20 MG TABLET PO SCH (09:00)
== END 2017-02-07 13:45 | DRG 682 ==
LOC: N.ED 16:38 → N.EDINP 21:37 → SUATTDRO 21:37 → N.ICU 22:17 → N.5E 02-05 22:46
PROVIDERS: ADMIT Internal Medicine; ATTEND Internal Medicine

== ENCOUNTER 2017-02-26 18:43 | Inpatient (IN) ==
[2017-02-26 19:33] LABS: Basophils % 0.3 % (0.0-0.8); Eosinophils # 0.1 10*3/uL (0.0-0.87); Eosinophils % 1.2 % (0.00-10.9); Hematocrit 28.4 VOL% (35.7-47.0); Hemoglobin 9.2 GM/DL (12.0-16.0); Immature Granulocytes % 1.5 %; Immature Granulocytes Absolute 0.09 #; Lymphocytes # 1.7 10*3/uL (1.4-4.0); Lymphocytes % 29.2 % (21.3-54.2); Mean Corpuscular HGB Conc 32.4 GM/DL (32-36); Mean Corpuscular Hemoglobin 31 PG (27-34); Mean Corpuscular Volume 94.4 FL (87-102); Monocytes # 0.4 10*3/uL (0.11-0.8); Monocytes % 7.4 % (1.7-12.7); Neutrophils # 3.6 10*3/uL (1.4-7.4); Neutrophils % 60.4 % (38.7-73.9); Platelet Count 100 T/CUMM (130-400); Red Blood Count 3.01 MC/CUMM (3.8-5.5); Red Cell Distribution Width 15.6 % (9.3-17.3)
[2017-02-26 19:40] LABS: PT Patient Result 20.8 SECS
[2017-02-26 19:42] LABS: Lactic Acid 0.7 MMOL/L (0.4-2.0)
[2017-02-26 19:43] LABS: Partial Thromboplastin Time 45.2 SECS (0-40)
[2017-02-26 19:48] LABS: Alanine Aminotransferase 44 U/L (13-56); Albumin 2.9 G/DL (3.4-5.0); Alkaline Phosphatase 57 U/L (45-117); Ammonia 28 UMOL/L (11-32); Aspartate Amino Transferase 39 U/L (0-37); Blood Urea Nitrogen 107 MG/DL (7-18); Calcium 7.2 MG/DL (8.5-10.1); Glucose 83 MG/DL (74-106); Osmolality,Calculated 318.8 MOS/KG (273-304); Potassium 4.5 MMOL/L (3.5-5.1); Sodium 144 MMOL/L (136-145); Total Protein 6.1 G/DL (6.4-8.3); Troponin I Only 0.022 NG/ML (0.00-0.045)
[2017-02-26 20:43] LABS: Apearance,Urine Slightly Hazy (Clear); Bacteria,Urine Occasional /HPF (Few); Bilirubin,Urine Negative (Negative); Blood, Urine Negative (Negative); Glucose,Urine (UA) Negative (Negative); Hyaline Casts,Urine 5 /LPF (0-3); Ketones,Urine Negative (Negative); Mucus,Urine Occasional /LPF (Occasional); Nitrite,Urine Negative (Negative); Protein,Urine Negative; RBC,Urine 2 /HPF (0-4); Squamous Epithelial Cell,Urine Occasional /HPF (0-10); Urine Color Yellow (Yellow); Urine Specific Gravity 1.009 (1.001-1.035); Urine Urobilinogen < 2.0 EU/DL (0.2-1.0); WBC,Urine 3 /HPF (0-6)
[2017-02-26] MEDS ORDERED: ONDANSETRON 4 MG/2 ML VIAL IV PRN (23:58)
[2017-02-26] MEDS ORDERED: CETIRIZINE 10 MG TABLET PO PRN (23:58)
[2017-02-26] MEDS ORDERED: DEXTROSE 50% 25 GM/50 ML VIAL IV PRN (23:58)
[2017-02-27] MEDS: EZETIMIBE 10 MG TABLET PO SCH ×2 (01:25→20:46)
[2017-02-27] MEDS: CARVEDILOL 25 MG TABLET PO SCH ×3 (01:25→17:35)
[2017-02-27] MEDS: PRAVASTATIN 40 MG TABLET PO SCH ×2 (01:26→20:47)
[2017-02-27 05:13] LABS: Hematocrit 25.9 VOL% (35.7-47.0); Hemoglobin 8.7 GM/DL (12.0-16.0)
[2017-02-27 06:26] LABS: Troponin I Only 0.024 NG/ML (0.00-0.045)
[2017-02-27 06:27] LABS: Risk Ratio 3.26; Thyroid Stimulating Hormone 1.2 uIU/ml (0.358-3.74); VLDL CHOLESTEROL 20.4 MG/DL
[2017-02-27] MEDS ORDERED: OLOPATADINE 0.1% OPH SOLN 5 ML BOTTLE BOTH EYES SCH (09:00)
[2017-02-27] MEDS: FLUTICASONE 50 MCG NASAL SPRAY 16 GM BOTTLE BOTH NARES SCH (09:53)
[2017-02-27] MEDS: amLODIPine 10 MG TABLET PO SCH (09:55)
[2017-02-27] MEDS: ISOSORBIDE MONONITRATE 30 MG TABLET PO SCH (09:55)
[2017-02-27] MEDS: FUROSEMIDE 40 MG TABLET PO SCH ×2 (09:55→17:34)
[2017-02-27] MEDS: TOPIRAMATE 25 MG TABLET PO SCH ×2 (09:55→20:47)
[2017-02-27] MEDS: POLYETHYLENE GLYCOL POWDER 17 GM PACK PO SCH (09:55)
[2017-02-27] MEDS: PANTOPRAZOLE 40 MG TABLET PO SCH (09:55)
[2017-02-27] MEDS: POTASSIUM CHLORIDE 20 MEQ TABLET PO SCH (09:55)
[2017-02-27] MEDS ORDERED: WARFARIN 3 MG TABLET PO SCH (18:00)
[2017-02-27] MEDS ORDERED: PHENOL 1.4% THROAT SPRAY 177 ML BOTTLE PO PRN (20:09)
[2017-02-28 04:38] LABS: Basophils % 0.2 % (0.0-0.8); Eosinophils % 0.7 % (0.00-10.9); Hematocrit 24.7 VOL% (35.7-47.0); Hemoglobin 8.2 GM/DL (12.0-16.0); Immature Granulocytes % 1.2 %; Immature Granulocytes Absolute 0.07 #; Lymphocytes # 2.8 10*3/uL (1.4-4.0); Mean Corpuscular HGB Conc 33.2 GM/DL (32-36); Mean Corpuscular Hemoglobin 31 PG (27-34); Mean Corpuscular Volume 93.9 FL (87-102); Mean Platelet Volume 9.6 FL (9.6-12.0); Monocytes # 0.4 10*3/uL (0.11-0.8); Monocytes % 7.5 % (1.7-12.7); Neutrophils # 2.3 10*3/uL (1.4-7.4); Neutrophils % 40.4 % (38.7-73.9); Platelet Count 88 T/CUMM (130-400); Red Blood Count 2.63 MC/CUMM (3.8-5.5); Red Cell Distribution Width 15.5 % (9.3-17.3); White Blood Count 5.6 T/CUMM (4-12)
[2017-02-28 05:14] LABS: Hypochromasia 1+; Lymphocytes 50 % (20-55); Microcytosis Slight; Ovalocytes Slight; Platelet Estimate Decreased; Segmented Neutrophils 43 % (50-85); Total Cells Counted 100
[2017-02-28 05:15] LABS: Calcium 6.7 MG/DL (8.5-10.1); Osmolality,Calculated 321.8 MOS/KG (273-304); Potassium 4.4 MMOL/L (3.5-5.1)
[2017-02-28] MEDS: FUROSEMIDE 40 MG TABLET PO SCH (09:35)
[2017-02-28] MEDS: ISOSORBIDE MONONITRATE 30 MG TABLET PO SCH (09:36)
[2017-02-28] MEDS: amLODIPine 10 MG TABLET PO SCH (09:36)
[2017-02-28] MEDS: TOPIRAMATE 25 MG TABLET PO SCH (09:36)
[2017-02-28] MEDS: CARVEDILOL 25 MG TABLET PO SCH (09:36)
[2017-02-28] MEDS: PANTOPRAZOLE 40 MG TABLET PO SCH (09:37)
[2017-02-28] MEDS: POTASSIUM CHLORIDE 20 MEQ TABLET PO SCH (09:37)
[2017-02-28] MEDS: POLYETHYLENE GLYCOL POWDER 17 GM PACK PO SCH (09:37)
[2017-02-28] MEDS: FLUTICASONE 50 MCG NASAL SPRAY 16 GM BOTTLE BOTH NARES SCH (09:38)
[2017-02-28 11:56] VITALS: BP 113/57
[2017-03-02] MEDS ORDERED: ERGOCALCIFEROL 50,000 UNIT CAPSULE PO SCH (22:49)
== END 2017-02-28 15:45 | disposition home or self-care (01) | DRG 638 ==
LOC: EDUNIT# → N.ED 18:43 → N.EDINP 22:40 → N.2E 23:12
PROVIDERS: ADMIT Internal Medicine; ATTEND Internal Medicine